=== PATIENT | male | born 1975 | race African-American/Black ===

== ENCOUNTER 2016-06-09 14:53 | Emergency (ER) | payer SELFPAY ==
[2016-06-09 15:16] VITALS: BP 142/84
--- NOTE | 2016-06-09 15:21 | ER Document Report ---
ED Medical Screen (RME) - General Stated Complaint: EYE PROBLEM Notes: Patient is a 40 year old male. Presents with 4 days of eye pain as well as swelling and discharge. Patient has been using eyedrops and ointment from his eye doctor with no improvement. Denies blurry vision and headache. I have greeted and performed a rapid initial assessment of this patient. A comprehensive ED assessment and evaluation of the patient, analysis of test results and completion of the medical decision making process will be conducted by additional ED providers. TRAVEL OUTSIDE OF THE [place] IN LAST 30 DAYS: No COUNTRY TRAVELED TO/FROM: [place] - Related Data Allergies/Adverse Reactions: Penicillins Allergy (Unknown, Verified 06/09/16 15:17) Past Medical History Pulmonary Medical History: Denies: Hx Tuberculosis Neurological Medical History: Denies: Hx Seizures Endocrine Medical History: Reports: Hx Diabetes Mellitus Type 2 Renal/ Medical History: Denies: Hx Kidney Stones GI Medical History: Reports: Hx Hiatal Hernia Past Surgical History: Denies: Hx Pacemaker - Immunizations Hx Diphtheria, Pertussis, Tetanus Vaccination: Yes - unknown Physical Exam - Vital signs Vitals: Temp Pulse Resp BP Pulse Ox 98.2 F 86 16 142/84 H 96 06/09/16 15:15 06/09/16 15:15 06/09/16 15:15 06/09/16 15:15 06/09/16 15:15 Course - Vital Signs Vital signs: Temp Pulse Resp BP Pulse Ox 98.2 F 86 16 142/84 H 96 06/09/16 15:15 06/09/16 15:15 06/09/16 15:15 06/09/16 15:15 06/09/16 15:15
--- NOTE | 2016-06-09 17:15 | ER Document Report ---
ED Eye Complaint - General Chief Complaint: Eye Problem Stated Complaint: EYE PROBLEM Information source: Patient Notes: Patient is a 40-year-old male who states he awoke 3 days ago with some left thigh pain and runny nose with some white discharge from the left eye. Patient denies any foreign bodies into the eye or trauma to the eye. He denies any nausea, vomiting, or fevers. Patient wears glasses but does not wear contacts. He states that bright lights bother the eye. Patient denies any connective tissue disorders or family history of connective tissue disorders. TRAVEL OUTSIDE OF THE [place] IN LAST 30 DAYS: No COUNTRY TRAVELED TO/FROM: [facility] Onset: Other - See above Eye location: Left Injury: No Quality of pain: Burning Severity: Mild Pain Level: Denies Contact lenses worn: No Associated symptoms: Pain, Photophobia, Redness. denies: Foreign body sensation - Related Data Allergies/Adverse Reactions: Penicillins Allergy (Unknown, Verified 06/09/16 15:17) Past Medical History - General Information source: Patient - Social History Smoking Status: Never Smoker Chew tobacco use (# tins/day): No Frequency of alcohol use: None Drug Abuse: None Family History: Reviewed & Not Pertinent Patient has suicidal ideation: No Patient has homicidal ideation: No Pulmonary Medical History: Denies: Hx Tuberculosis Neurological Medical History: Denies: Hx Seizures Endocrine Medical History: Reports: Hx Diabetes Mellitus Type 2 Renal/ Medical History: Denies: Hx Kidney Stones, Hx Peritoneal Dialysis GI Medical History: Reports: Hx Hiatal Hernia Past Surgical History: Denies: Hx Pacemaker - Immunizations Hx Diphtheria, Pertussis, Tetanus Vaccination: Yes - unknown Physical Exam - Vital signs Vitals: Temp Pulse Resp BP Pulse Ox 98.2 F 86 16 142/84 H 96 06/09/16 15:15 06/09/16 15:15 06/09/16 15:15 06/09/16 15:15 06/09/16 15:15 - HEENT Head: Normocephalic, Atraumatic Eyes: Other - Patient's pupil is equal and reactive bilaterally. For extraocular painless range of motion. Patient has no periorbital swelling or erythema. Globes soft. I am unable to detect any foreign body including eversion of the eyelid. Fluids seem shows no obvious uptake. Slit lamp also shows no foreign body and I can detect no obvious cell or flare. Visual acuity is 20/200 on bilateral eyes. Pupils: PERRL Visual acuity- Right eye: 20/200 Visual acuity- Left eye: 20/200 Visual acuity- Both eyes: 20/200 Corrective lenses worn: No - Requires glasses, doesn't have glasses with him. Course - Re-evaluation Re-evalutation: 06/09/16 17:14 Steve-Pen pressure is less than 20. Extensive eye examination as above. Given the history and physical examination, I will call Dr. Anne Marie Lewis the bar host/hostess immersion metalcleaner to discuss the case. 06/09/16 17:22 Dr. Lewis recommended ophthalmic eye ointment and follow-up tomorrow morning in his office. I believe that this is reasonable. Strict return precautions have been explained. - Vital Signs Vital signs: Temp Pulse Resp BP Pulse Ox 98.2 F 86 16 142/84 H 96 06/09/16 15:15 06/09/16 15:15 06/09/16 15:15 06/09/16 15:15 06/09/16 15:15 Discharge - Discharge Clinical Impression: Pain, eye, left Condition: Good Disposition: HOME, SELF-CARE Additional Instructions: Come back immediately with any increased pain, discharge, irritation, any facial redness or swelling, any fevers or vomiting, or any other acute problems. Please make sure that you follow-up with Dr. Anne Marie Lewis tomorrow at the office as we have discussed. Please make sure that she show up and tell them that you were told to come to the office for an eye examination. Prescriptions: Erythromycin Base [E-Mycin 0.5% Oph Oint 1 gm Unit Dose] 1 applic OU QID 7 Days Referrals: ANNE MARIE REES DO [ACTIVE STAFF] - Follow up as needed
[2016-06-09] MEDS ORDERED: ERYTHROMYCIN 0.5% OPH OINT 1 GM UNIT DOSE OS ONE (17:23)
== END 2016-06-09 18:10 | disposition home or self-care (01) ==
LOC: ER 14:53
DX: H57.12 Ocular pain, left eye (principal); H57.8 Other specified disorders of eye and adnexa; R09.89 Other specified symptoms and signs involving the circulatory and respiratory systems; H53.149 Visual discomfort, unspecified; Z88.0 Allergy status to penicillin; E11.9 Type 2 diabetes mellitus without complications
CPT/HCPCS: 99283

== ENCOUNTER 2016-10-16 10:01 | Emergency (ER) | payer SELFPAY ==
[2016-10-16] MEDS ORDERED: TETRACAINE HCL 0.5% OPH SOLN 2 ML OU ONE (10:47)
--- NOTE | 2016-10-16 10:48 | ER Document Report ---
HPI - HPI Patient complains to provider of: eye pain Onset: Yesterday Onset/Duration: Gradual Quality of pain: Burning Pain Level: 5 Context: Complains of bilateral eye pain that started yesterday. Patient denies any known injury. Patient does report light sensitivity. Patient wears glasses but denies any contact lens use. Patient denies any purulent drainage from eyes but does report frequent tearing. Associated Symptoms: Other - bilateral eye pain. denies: Headache Exacerbated by: Denies Relieved by: Denies Similar symptoms previously: Yes Recently seen / treated by doctor: No - ROS ROS below otherwise negative: Yes Systems Reviewed and Negative: Yes All other systems reviewed and negative - EENT EENT: REPORTS: Eye problems - NEURO Neurology: DENIES: Headache - REPRODUCTIVE Reproductive: DENIES: : - DERM Skin Color: Normal Skin Problems: None Past Medical History - General Information source: Patient - Social History Smoking Status: Never Smoker Frequency of alcohol use: None Drug Abuse: None Family History: Reviewed & Not Pertinent Patient has suicidal ideation: No Patient has homicidal ideation: No Pulmonary Medical History: Denies: Hx Tuberculosis Neurological Medical History: Denies: Hx Seizures Endocrine Medical History: Reports: Hx Diabetes Mellitus Type 2 Renal/ Medical History: Denies: Hx Kidney Stones, Hx Peritoneal Dialysis GI Medical History: Reports: Hx Hiatal Hernia Surgical Hx: Negative Past Surgical History: Denies: Hx Pacemaker - Immunizations Hx Diphtheria, Pertussis, Tetanus Vaccination: Yes - unknown Vertical Provider Document - CONSTITUTIONAL Agree With Documented VS: Yes Exam Limitations: No Limitations General Appearance: WD/WN, No Apparent Distress - INFECTION CONTROL TRAVEL OUTSIDE OF THE [place] IN LAST 30 DAYS: No COUNTRY TRAVELED TO/FROM: [place] - HEENT HEENT: Atraumatic, Normocephalic, PERRLA Notes: EOMI, mild injection to bilat conjunctiva. No corneal ulcers, dendrite, or foreign body. - NECK Neck: Normal Inspection - RESPIRATORY Respiratory: No Respiratory Distress O2 Sat by Pulse Oximetry: 97 - BACK Back: Normal Inspection - MUSCULOSKELETAL/EXTREMETIES Musculoskeletal/Extremeties: MAEW - NEURO Level of Consciousness: Awake, Alert, Appropriate Motor/Sensory: No Motor Deficit - DERM Integumentary: Warm, Dry, No Rash Course - Vital Signs Vital signs: Temp Pulse Resp BP Pulse Ox 98.1 F 84 20 137/74 H 97 10/16/16 10:05 10/16/16 10:05 10/16/16 10:05 10/16/16 10:05 10/16/16 10:05 Procedures - Eye Procedure Left Fluorescein applied: Bilateral Eyes picture: 1 - 1mm abraison 2 - 1 mm abrasion 3 - linear abrasion Discharge - Discharge Clinical Impression: Corneal abrasion Qualifiers: Encounter type: initial encounter Laterality: unspecified laterality Qualified Code(s): S05.00XA - Injury of conjunctiva and corneal abrasion without foreign body, unspecified eye, initial encounter Condition: Stable Disposition: HOME, SELF-CARE Instructions: Corneal Abrasion ([facility]) Additional Instructions: Follow-up with your benefits clerk on Tuesday for recheck, call Tuesday to make a follow-up appointment Return as needed for any new or worsening symptoms Prescriptions: Erythromycin Base [Erythromycin] 1 applic OP QID #3.5 oint..gm. Referrals: [facility] [Provider Group] - 10/18/16
[2016-10-16 11:39] VITALS: BP 118/58
== END 2016-10-16 11:36 | disposition home or self-care (01) ==
LOC: ER 10:01
DX: S05.02XA Injury of conjunctiva and corneal abrasion without foreign body, left eye, initial encounter (principal); S05.01XA Injury of conjunctiva and corneal abrasion without foreign body, right eye, initial encounter; X58.XXXA Exposure to other specified factors, initial encounter; H57.13 Ocular pain, bilateral; E11.9 Type 2 diabetes mellitus without complications
CPT/HCPCS: 99283

== ENCOUNTER → 2016-10-22 | Outpatient (CLI) | payer OTHER ==
[2016-10-22 17:59] LABS: ALANINE AMINOTRANSFERASE 121 U/L (21-72); ALBUMIN 4.4 g/dL (3.5-5.0); ALKALINE PHOSPHATASE 96 U/L (38-126); ANION GAP 13 (5-19); ASPARTATE AMINO TRANSFERASE 51 U/L (17-59); BILIRUBIN,DIRECT 0.3 mg/dL (0.0-0.4); BILIRUBIN,TOTAL 0.4 mg/dL (0.2-1.3); BLOOD UREA NITROGEN 18 mg/dL (7-20); CALCIUM 9.3 mg/dL (8.4-10.2); CARBON DIOXIDE 24 mmol/L (22-30); CHLORIDE 106 mmol/L (98-107); CREATININE RESULT 1.08 mg/dL (0.52-1.25); GLUCOSE 50 mg/dL (75-110); POTASSIUM 3.8 mmol/L (3.6-5.0); SODIUM 142.7 mmol/L (137-145); TOTAL PROTEIN 7.8 g/dL (6.3-8.2)
[2016-10-24 07:38] LABS: CREATININE URINE 190.7 mg/dL (Not Estab.); MICROALBUMIN URINE 6.8 ug/mL (Not Estab.)
== END ==
LOC: CCC 16:14
DX: E10.9 Type 1 diabetes mellitus without complications (principal)
CPT/HCPCS: 36415; 80053; 82043; 82570; 83036; 84443

== ENCOUNTER 2017-01-23 15:59 | Emergency (ER) | payer OTHER ==
[2017-01-23 16:05] VITALS: BP 128/68
[2017-01-23] MEDS ORDERED: TETRACAINE HCL 0.5% OPH SOLN 2 ML OU ONE (16:31)
[2017-01-23] MEDS ORDERED: KETOROLAC TROMETHAMINE 0.45% 4 DROP/0.4 ML DROPERETTE OU ONE (16:32)
--- NOTE | 2017-01-23 16:38 | ER Document Report ---
ED Eye Complaint - General Chief Complaint: Eye Pain Stated Complaint: EYE PAIN Time Seen by Provider: 01/23/17 16:26 Notes: 41 yo male c/o bilateral eye soreness, tearing x 2 days. no trauma. noncontact wearer, wears glasses. denies visual change, headache. Pt also c/o pain to right small toe x several weeks. TRAVEL OUTSIDE OF THE [place] IN LAST 30 DAYS: No COUNTRY TRAVELED TO/FROM: [facility] Eye location: Bilateral Injury: No Quality of pain: Other - soreness Associated symptoms: Redness, Other - tearing. denies: Photophobia, Matting, Eyelid swelling, Foreign body sensation, Blurred vision - Related Data Allergies/Adverse Reactions: Penicillins Allergy (Unknown, Verified 01/23/17 16:03) Past Medical History - General Information source: Patient - Social History Smoking Status: Never Smoker Frequency of alcohol use: None Drug Abuse: None Lives with: Family Family History: Reviewed & Not Pertinent Pulmonary Medical History: Denies: Hx Tuberculosis Neurological Medical History: Denies: Hx Seizures Endocrine Medical History: Reports: Hx Diabetes Mellitus Type 2 Renal/ Medical History: Denies: Hx Kidney Stones, Hx Peritoneal Dialysis GI Medical History: Reports: Hx Hiatal Hernia Past Surgical History: Denies: Hx Pacemaker - Immunizations Hx Diphtheria, Pertussis, Tetanus Vaccination: Yes - unknown Review of Systems - Review of Systems Constitutional: No symptoms reported EENT: No symptoms reported Cardiovascular: No symptoms reported Respiratory: No symptoms reported Gastrointestinal: No symptoms reported Genitourinary: No symptoms reported Male Genitourinary: No symptoms reported Musculoskeletal: No symptoms reported Skin: No symptoms reported Hematologic/Lymphatic: No symptoms reported Neurological/Psychological: No symptoms reported -: Yes All other systems reviewed and negative Physical Exam - Vital signs Vitals: Temp Pulse Resp BP Pulse Ox 98.5 F 91 16 128/68 H 95 01/23/17 16:02 01/23/17 16:02 01/23/17 16:02 01/23/17 16:02 01/23/17 16:02 Interpretation: Normal - General General appearance: Appears well, Alert - HEENT Head: Normocephalic, Atraumatic Eyes: Normal Conjunctiva: Injected Extraocular movements intact: Yes Pupils: PERRL Tympanic membrane: Normal Neck: Normal, Supple - Respiratory Respiratory status: No respiratory distress Chest status: Nontender Breath sounds: Normal Chest palpation: Normal - Cardiovascular Rhythm: Regular Heart sounds: Normal auscultation Murmur: No - Abdominal Inspection: Normal Distension: No distension Bowel sounds: Normal Tenderness: Nontender Organomegaly: No organomegaly - Back Back: Normal, Nontender - Extremities General upper extremity: Normal inspection, Nontender, Normal color, Normal ROM , Normal temperature General lower extremity: Normal inspection, Nontender, Normal color, Normal ROM , Normal temperature, Normal weight bearing. No: Jesusita's sign Foot: Tender - right little toe with callous/corn to dorsal toe. no erythema or signs of infection - Neurological Neuro grossly intact: Yes Cognition: Normal Orientation: AAOx4 Lani Coma Scale Eye Opening: Spontaneous Lani Coma Scale Verbal: Oriented Lani Coma Scale Motor: Obeys Commands [place] Coma Scale Total: 15 Speech: Normal Motor strength normal: LUE, RUE, LLE, RLE Sensory: Normal - Psychological Associated symptoms: Normal affect, Normal mood - Skin Skin Temperature: Warm Skin Moisture: Dry Skin Color: Normal Course - Vital Signs Vital signs: Temp Pulse Resp BP Pulse Ox 98.5 F 91 16 128/68 H 95 01/23/17 16:02 01/23/17 16:02 01/23/17 16:02 01/23/17 16:02 01/23/17 16:02 Procedures - Eye Procedure bilat eyes Alcaine Drops Administered: Yes - tetracaine Acular drops administered: Bilateral Fluorescein applied: Bilateral - no fluorescein up take Discharge - Discharge Clinical Impression: [place] of toe Conjunctivitis Qualifiers: Conjunctivitis type: acute Laterality: bilateral Condition: Stable Disposition: HOME, SELF-CARE Instructions: Conjunctivitis ([facility]) Additional Instructions: use antibiotic drops as prescribed cool compresses for comfort good hand hygiene follow up with [facility] if symptoms persist return to ER for any worsening Prescriptions: Polymyxin B Sulf/Trimethoprim [Polytrim Eye Drops] 1 drop OS Q4 #1 bottle
== END 2017-01-23 16:56 | disposition home or self-care (01) ==
LOC: ER 15:59
DX: H10.9 Unspecified conjunctivitis (principal); L84 Corns and callosities; Z88.0 Allergy status to penicillin; E11.9 Type 2 diabetes mellitus without complications
CPT/HCPCS: 99283

== ENCOUNTER 2017-01-30 01:48 | Emergency (ER) | payer SELFPAY ==
[2017-01-30 01:58] VITALS: BP 127/80
--- NOTE | 2017-01-30 02:41 | ER Document Report ---
ED General - General Chief Complaint: Flu Symptoms Stated Complaint: SORE THROAT Time Seen by Provider: 01/30/17 02:19 Mode of Arrival: Ambulatory Information source: Patient TRAVEL OUTSIDE OF THE [place] IN LAST 30 DAYS: No COUNTRY TRAVELED TO/FROM: [facility] Patient complains to provider of: Right ear and throat itching Onset: Yesterday Onset/Duration: Intermittent Quality of pain: No pain Associated symptoms: Nonproductive cough Exacerbated by: Denies Notes: Patient is a 41-year-old male presenting to the emergency room complaining of itching sensation that started in his right ear yesterday, and spread to his throat, he took an [id number] cold tablet yesterday and symptoms went away only to return today, he does report nasal congestion, nonproductive cough , denies a fever, he is resting comfortably at time of my evaluation and reports that his symptoms are once again resolved as he has taken another cold tablets - Related Data Allergies/Adverse Reactions: Penicillins Allergy (Unknown, Verified 01/30/17 01:54) Past Medical History - General Information source: Patient - Social History Smoking Status: Never Smoker Family History: Reviewed & Not Pertinent - Past Medical History Cardiac Medical History: Reports: Hx Hypercholesterolemia Pulmonary Medical History: Denies: Hx Tuberculosis Neurological Medical History: Denies: Hx Seizures Endocrine Medical History: Reports: Hx Diabetes Mellitus Type 2 Renal/ Medical History: Denies: Hx Kidney Stones, Hx Peritoneal Dialysis GI Medical History: Reports: Hx Hiatal Hernia Past Surgical History: Denies: Hx Pacemaker - Immunizations Hx Diphtheria, Pertussis, Tetanus Vaccination: Yes - unknown Review of Systems - Review of Systems Constitutional: No symptoms reported EENT: See HPI Cardiovascular: No symptoms reported Respiratory: See HPI Gastrointestinal: No symptoms reported Genitourinary: No symptoms reported Male Genitourinary: No symptoms reported Musculoskeletal: No symptoms reported Skin: No symptoms reported Hematologic/Lymphatic: No symptoms reported Neurological/Psychological: No symptoms reported -: Yes All other systems reviewed and negative Physical Exam - Vital signs Vitals: Temp Pulse Resp BP Pulse Ox 99.0 F 89 14 127/80 H 97 01/30/17 01:55 01/30/17 01:55 01/30/17 01:55 01/30/17 01:55 01/30/17 01:55 Interpretation: Normal - General General appearance: Appears well, Alert - HEENT Head: Normocephalic, Atraumatic Eyes: Normal Conjunctiva: Normal Extraocular movements intact: Yes Eyelashes: Normal Pupils: PERRL Ears: Normal External canal: Normal Tympanic membrane: Normal Pharynx: Erythema. No: Exudate, Tonsillar hypertrophy Neck: Normal - Respiratory Respiratory status: No respiratory distress Chest status: Nontender Breath sounds: Normal Chest palpation: Normal - Cardiovascular Rhythm: Regular Heart sounds: Normal auscultation Murmur: No - Abdominal Inspection: Normal Distension: No distension Bowel sounds: Normal Tenderness: Nontender Organomegaly: No organomegaly - Back Back: Normal, Nontender - Extremities General upper extremity: Normal inspection, Nontender, Normal color, Normal ROM , Normal temperature General lower extremity: Normal inspection, Nontender, Normal color, Normal ROM , Normal temperature, Normal weight bearing. No: Jesusita's sign - Neurological Neuro grossly intact: Yes Cognition: Normal Orientation: AAOx4 [place] Coma Scale Eye Opening: Spontaneous Lani Coma Scale Verbal: Oriented Lani Coma Scale Motor: Obeys Commands [place] Coma Scale Total: 15 Speech: Normal Motor strength normal: LUE, RUE, LLE, RLE Sensory: Normal - Psychological Associated symptoms: Normal affect, Normal mood - Skin Skin Temperature: Warm Skin Moisture: Dry Skin Color: Normal Course - Re-evaluation Re-evalutation: 01/30/17 04:33 Physical exam findings are unremarkable, patient symptoms are consistent with likely viral upper respiratory illness, he is asymptomatic at time of my evaluation, he was advised to continue taking the byre-imi-inhrbjq cold tablets that he has been taking as he seem to be helping with his symptoms, follow-up with a primary care provider or return if symptoms worsen, patient acknowledges understanding and agreement with this plan - Vital Signs Vital signs: Temp Pulse Resp BP Pulse Ox 99.0 F 89 14 127/80 H 97 01/30/17 01:55 01/30/17 01:55 01/30/17 01:55 01/30/17 01:55 01/30/17 01:55 Discharge - Discharge Clinical Impression: Viral upper respiratory illness Condition: Stable Disposition: HOME, SELF-CARE Instructions: Upper Respiratory Illness ([facility]), Viral Syndrome ([facility]) Additional Instructions: Follow up with your primary care provider in one to 2 days. Return to the emergency room immediately if symptoms worsen or any additional concerns.
== END 2017-01-30 02:58 | disposition home or self-care (01) ==
LOC: ER 01:48
DX: J02.9 Acute pharyngitis, unspecified (principal); B34.9 Viral infection, unspecified; H92.01 Otalgia, right ear; R09.81 Nasal congestion; R05 Cough; J06.9 Acute upper respiratory infection, unspecified
CPT/HCPCS: 99283

== ENCOUNTER 2017-02-14 06:36 | Emergency (ER) | payer SELFPAY ==
[2017-02-14 06:44] VITALS: BP 121/73
--- NOTE | 2017-02-14 07:11 | ER Document Report ---
ED General - General Chief Complaint: Eye Problem Stated Complaint: PAIN IN LEFT EYE Time Seen by Provider: 02/14/17 07:04 Mode of Arrival: Ambulatory Information source: Patient Notes: 41 yr old male presents with complaints of drainage clear fluid from the left eye, pt has had multiple previous episodes. denies any fevers or chills, nasuea or vomtiing . denies any blurry vision TRAVEL OUTSIDE OF THE [place] IN LAST 30 DAYS: No COUNTRY TRAVELED TO/FROM: [facility] Onset: Just prior to arrival Onset/Duration: Intermittent, Waxing and waning Quality of pain: No pain Severity: Mild Pain Level: Denies Associated symptoms: None Exacerbated by: Denies Relieved by: Denies Similar symptoms previously: Yes Recently seen / treated by doctor: Yes - Related Data Allergies/Adverse Reactions: Penicillins Allergy (Unknown, Verified 02/14/17 06:43) Past Medical History - Social History Smoking Status: Never Smoker Cigarette use (# per day): No Chew tobacco use (# tins/day): No Smoking Education Provided: No Frequency of alcohol use: None Family History: Reviewed & Not Pertinent Patient has suicidal ideation: No Patient has homicidal ideation: No - Past Medical History Cardiac Medical History: Reports: Hx Hypercholesterolemia Pulmonary Medical History: Denies: Hx Tuberculosis Neurological Medical History: Denies: Hx Seizures Endocrine Medical History: Reports: Hx Diabetes Mellitus Type 2 Renal/ Medical History: Denies: Hx Kidney Stones, Hx Peritoneal Dialysis GI Medical History: Reports: Hx Hiatal Hernia Surgical Hx: Negative Past Surgical History: Denies: Hx Pacemaker - Immunizations Hx Diphtheria, Pertussis, Tetanus Vaccination: Yes - unknown Review of Systems - Review of Systems Notes: REVIEW OF SYSTEMS: CONSTITUTIONAL : Denies fever, chills, or sweats. Denies recent illness. EENT: left eye drainage CARDIOVASCULAR: Denies chest pain. Denies palpitations or racing or irregular heart beat. Denies ankle edema. RESPIRATORY: Denies cough, cold, or chest congestion. Denies shortness of breath, difficulty breathing, or wheezing. GASTROINTESTINAL: Denies abdominal pain or distention. Denies nausea, vomiting , or diarrhea. Denies blood in vomitus, stools, or per rectum. Denies black, tarry stools. Denies constipation. GENITOURINARY: Denies difficulty urinating, painful urination, burning, frequency, blood in urine, or discharge. MUSCULOSKELETAL: Denies back or neck pain or stiffness. Denies joint pain or swelling. SKIN: Denies rash, lesions or sores. HEMATOLOGIC : Denies easy bruising or bleeding. LYMPHATIC: Denies swollen, enlarged glands. NEUROLOGICAL: Denies confusion or altered mental status. Denies passing out or loss of consciousness. Denies dizziness or lightheadedness. Denies headache. Denies weakness or paralysis or loss of use of either side. Denies problems with gait or speech. Denies sensory loss, numbness, or tingling. Denies seizures. PSYCHIATRIC: Denies anxiety or stress. Denies depression, suicidal ideation, or homicidal ideation. ALL OTHER SYSTEMS REVIEWED AND NEGATIVE. Dictation was performed using [employer] voice recognition software PHYSICAL EXAMINATION: GENERAL: Well-appearing, well-nourished and in no acute distress. HEAD: Atraumatic, normocephalic. EYES: Pupils equal round and reactive to light, extraocular movements intact, sclera anicteric, left ocnjunctiva injected , clear tears ENT: Nares patent, oropharynx clear without exudates. Moist mucous membranes. NECK: Normal range of motion, supple without lymphadenopathy LUNGS: Breath sounds clear to auscultation bilaterally and equal. No wheezes rales or rhonchi. HEART: Regular rate and rhythm without murmurs ABDOMEN: Soft, nontender, nondistended abdomen. No guarding, no rebound. No masses appreciated. Musculoskeletal: Normal range of motion, no pitting or edema. No cyanosis. NEUROLOGICAL: Cranial nerves grossly intact. Normal speech, normal gait. Normal sensory, motor exams PSYCH: Normal mood, normal affect. SKIN: Warm, Dry, normal turgor, no rashes or lesions noted. Physical Exam - Vital signs Vitals: Temp Pulse Resp BP Pulse Ox 98.8 F 79 16 121/73 98 02/14/17 06:43 02/14/17 06:43 02/14/17 06:43 02/14/17 06:43 02/14/17 06:43 Course - Re-evaluation Re-evalutation: 02/14/17 10:19 Patient has been seen multiple times for these previous similar episodes, I have suspicion he has not actually seen the aluminum polisher that we keep referring him to. I have requested he do so given that we can keep trying antibiotics and do not seem to fix the problem. Patient has Bactrim drops and i encouraged use until seen by optho After performing a Medical Screening Examination, I estimate there is LOW risk for a RETAINED CORNEAL or LID FOREIGN BODY, DEEP SPACE INFECTION (e.g., ORBITAL CELLULITIS OR ABSCESS), ACUTE GLAUCOMA, PENETRATING GLOBE INJURY, RETINAL DETACHMENT, or MENINGITIS thus I consider the discharge disposition reasonable. I have reevaluated this patient multiple times and no significant life threatening changes are noted. Also, there is no evidence or peritonitis, sepsis , or toxicity. The patient and I have discussed the diagnosis and risks, and we agree with discharging home with outpatient follow-up with the understanding that symptoms and presentations can change. We also discussed returning to the Emergency Department immediately if new or worsening symptoms occur. We have discussed the symptoms which are most concerning (e.g., changing or worsening pain, vision changes, neck stiffness or fever) that necessitate immediate return. - Vital Signs Vital signs: Temp Pulse Resp BP Pulse Ox 98.8 F 79 16 121/73 98 02/14/17 06:43 02/14/17 06:43 02/14/17 06:45 02/14/17 06:43 02/14/17 06:43 Discharge - Discharge Clinical Impression: Conjunctivitis Qualifiers: Conjunctivitis type: acute Acute conjunctivitis type: viral Laterality: left Qualified Code(s): B30.9 - Viral conjunctivitis, unspecified Condition: Stable Disposition: HOME, SELF-CARE Instructions: Conjunctivitis, Allergic, Conjunctivitis ([facility]) Additional Instructions: You have been seen multiple times for left eye pain, you must be seen by an aluminum polisher for further care you may use the antibiotic drops once every 4 hours for 10 days Forms: Return to Work Referrals: SAMEERA SZYMANSKI MD [ACTIVE STAFF] - 02/15/17
== END 2017-02-14 07:20 | disposition home or self-care (01) ==
LOC: ER 06:36
DX: B30.9 Viral conjunctivitis, unspecified (principal); H57.12 Ocular pain, left eye; E78.00 Pure hypercholesterolemia, unspecified; E11.9 Type 2 diabetes mellitus without complications; Z88.0 Allergy status to penicillin
CPT/HCPCS: 99283

== ENCOUNTER 2017-03-07 16:26 | Emergency (ER) | payer SELFPAY ==
--- NOTE | 2017-03-07 17:48 | ER Document Report ---
HPI - HPI Patient complains to provider of: Eye irritation, nasal congestion Onset: This afternoon Onset/Duration: Gradual Quality of pain: Achy Pain Level: 4 Context: Patient presents complaining of left eye irritation with some mild drainage. Patient is concerned that he may have conjunctivitis. Patient does wear glasses and denies any contact lens use. Patient also reports some nasal congestion symptoms. Patient denies any fever, sore throat or ear pain. Patient denies any cough at this time. Associated Symptoms: Rhinnorhea. denies: Fever, Headache, Vomiting Exacerbated by: Denies Relieved by: Denies Similar symptoms previously: Yes Recently seen / treated by doctor: No - ROS ROS below otherwise negative: Yes Systems Reviewed and Negative: Yes All other systems reviewed and negative - EENT EENT: REPORTS: Nasal Drainage-Clear, Congestion, Eye problems - CARDIOVASCULAR Cardiovascular: DENIES: Chest pain - RESPIRATORY Respiratory: DENIES: Coughing - GASTROINTESTINAL Gastrointestinal: DENIES: Nausea, Patient vomiting - REPRODUCTIVE Reproductive: DENIES: : - DERM Skin Color: Normal Skin Problems: None Past Medical History - General Information source: Patient - Social History Smoking Status: Never Smoker Chew tobacco use (# tins/day): No Frequency of alcohol use: None Drug Abuse: None 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 Family History: Reviewed & Not Pertinent Patient has suicidal ideation: No Patient has homicidal ideation: No - Past Medical History Cardiac Medical History: Reports: Hx Hypercholesterolemia Pulmonary Medical History: Denies: Hx Tuberculosis Neurological Medical History: Denies: Hx Seizures Endocrine Medical History: Reports: Hx Diabetes Mellitus Type 2 Renal/ Medical History: Denies: Hx Kidney Stones, Hx Peritoneal Dialysis GI Medical History: Reports: Hx Hiatal Hernia Surgical Hx: Negative Past Surgical History: Denies: Hx Pacemaker - Immunizations Hx Diphtheria, Pertussis, Tetanus Vaccination: Yes - unknown Vertical Provider Document - CONSTITUTIONAL Agree With Documented VS: Yes Exam Limitations: No Limitations General Appearance: WD/WN, No Apparent Distress - INFECTION CONTROL TRAVEL OUTSIDE OF THE [place] IN LAST 30 DAYS: No - HEENT HEENT: Atraumatic, Normocephalic Notes: Small amount of mucoid drainage noted to eyelashes of left eye,. Minimal injection of sclera of left eye. Extraocular movements intact, no fluorescein uptake, no corneal abrasion, dendrite, or corneal ulcer. - NECK Neck: Normal Inspection, Supple - RESPIRATORY Respiratory: Breath Sounds Normal, No Respiratory Distress O2 Sat by Pulse Oximetry: 96 - CARDIOVASCULAR Cardiovascular: Regular Rate, Regular Rhythm - MUSCULOSKELETAL/EXTREMETIES Musculoskeletal/Extremeties: MAEW - NEURO Level of Consciousness: Awake, Alert, Appropriate Motor/Sensory: No Motor Deficit - DERM Integumentary: Warm, Dry, No Rash Course - Vital Signs Vital signs: Temp Pulse Resp BP Pulse Ox 98.5 F 78 15 133/75 H 96 03/07/17 17:01 03/07/17 17:01 03/07/17 17:01 03/07/17 17:01 03/07/17 17:01 Discharge - Discharge Clinical Impression: Nasal congestion Conjunctivitis Qualifiers: Conjunctivitis type: unspecified Laterality: left Qualified Code(s): H10.9 - Unspecified conjunctivitis Condition: Stable Disposition: HOME, SELF-CARE Instructions: Conjunctivitis ([facility]), Upper Respiratory Illness ([facility]) Additional Instructions: Return immediately for any new or worsening symptoms Followup with your primary care provider, call tomorrow to make a followup appointment Use saline nasal spray [id number] to help with nasal congestion symptoms. 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 Prescriptions: Erythromycin Base [Erythromycin] 1 applic LFT_EYE QID #3.5 oint..gm. Referrals: [facility] [Provider Group] - Follow up tomorrow
[2017-03-07 19:02] VITALS: BP 129/73
== END 2017-03-07 19:00 | disposition home or self-care (01) ==
LOC: ER 16:26
DX: H10.9 Unspecified conjunctivitis (principal); R09.81 Nasal congestion; E78.00 Pure hypercholesterolemia, unspecified; E11.9 Type 2 diabetes mellitus without complications
CPT/HCPCS: 99283

== ENCOUNTER 2017-03-11 16:11 | Emergency (ER) | payer OTHER ==
--- NOTE | 2017-03-11 17:12 | ER Document Report ---
HPI - HPI Pain Level: 4 Notes: Patient is a 41-year-old diabetic male who presents to the ED complaining of right nipple/breast pain 2 days. Patient states that he has noticed redness and a lump in the area. Patient has not noticed any obvious drainage or abscess formation. Patient states that the pain does not radiate. He denies any piercings, insect bites, or human bites to the area. Patient states that he is still eating and drinking without any difficulties. He has no other concerns or complaints. Denies any history of breast cancer. Patient denies any smoking or IV drug use. Denies any headache, fever, neck pain, URI, sore throat, chest pain, palpitations, syncope, cough, shortness of breath, wheeze, dyspnea, abdominal pain, nausea/vomiting/diarrhea, urinary retention, dysuria, hematuria. No h/o MRSA. - ROS Notes: REVIEW OF SYSTEMS: CONSTITUTIONAL : Denies fever, chills, or sweats. Denies recent illness. EENT: Denies eye, ear, throat, or mouth pain or symptoms. Denies nasal or sinus congestion or discharge. Denies throat, tongue, or mouth swelling or difficulty swallowing. CARDIOVASCULAR: Denies chest pain. Denies palpitations or racing or irregular heart beat. Denies ankle edema. RESPIRATORY: Denies cough, cold, or chest congestion. Denies shortness of breath, difficulty breathing, or wheezing. GASTROINTESTINAL: Denies abdominal pain or distention. Denies nausea, vomiting , or diarrhea. Denies blood in vomitus, stools, or per rectum. Denies black, tarry stools. Denies constipation. GENITOURINARY: Denies difficulty urinating, painful urination, burning, frequency, blood in urine, or discharge. MUSCULOSKELETAL: Denies back or neck pain or stiffness. Denies joint pain or swelling. SKIN: see hpi NEUROLOGICAL: Denies confusion or altered mental status. Denies passing out or loss of consciousness. Denies dizziness or lightheadedness. Denies headache. Denies weakness or paralysis or loss of use of either side. Denies problems with gait or speech. Denies sensory loss, numbness, or tingling. ALL OTHER SYSTEMS REVIEWED AND NEGATIVE. Dictation was performed using [employer] voice recognition software - CARDIOVASCULAR Cardiovascular: DENIES: Chest pain - REPRODUCTIVE Reproductive: DENIES: : - DERM Skin Color: Normal Past Medical History - Social History Smoking Status: Never Smoker Chew tobacco use (# tins/day): No Frequency of alcohol use: None Drug Abuse: None Family History: Reviewed & Not Pertinent Patient has suicidal ideation: No Patient has homicidal ideation: No - Past Medical History Cardiac Medical History: Reports: Hx Hypercholesterolemia Pulmonary Medical History: Denies: Hx Tuberculosis Neurological Medical History: Denies: Hx Seizures Endocrine Medical History: Reports: Hx Diabetes Mellitus Type 2 Renal/ Medical History: Denies: Hx Kidney Stones, Hx Peritoneal Dialysis GI Medical History: Reports: Hx Hiatal Hernia Surgical Hx: Negative Past Surgical History: Denies: Hx Pacemaker - Immunizations Hx Diphtheria, Pertussis, Tetanus Vaccination: Yes - unknown Vertical Provider Document - CONSTITUTIONAL Agree With Documented VS: Yes Notes: PHYSICAL EXAMINATION: GENERAL: Well-appearing, well-nourished and in no acute distress. NECK: Normal range of motion, supple without lymphadenopathy Chest: + erythema to the lower 1/3 nipple and inferior nipple surrounding skin. + lump palpated w/o obvious fluctuant fluid. Lump is moveable and tender. No nipple discharge, streaks, or dimpling noted. LUNGS: Breath sounds clear to auscultation bilaterally and equal. No wheezes rales or rhonchi. HEART: Regular rate and rhythm without murmurs, rubs, gallops. Musculoskeletal: FROM to passive/active. Strength 5+/5. Extremities: No cyanosis, clubbing, or edema b/l. Peripheral pulses 2+. Capillary refill less than 3 seconds. NEUROLOGICAL: Normal speech, normal gait. Normal sensory, motor exams PSYCH: Normal mood, normal affect. SKIN: see chest exam. warm, Dry, normal turgor, no rashes or lesions noted. - INFECTION CONTROL TRAVEL OUTSIDE OF THE [place] IN LAST 30 DAYS: No - RESPIRATORY O2 Sat by Pulse Oximetry: 97 Course - Re-evaluation Re-evalutation: 03/11/17 17:[address] Stover who recommended US to investigate for any fluid. If no fluid, send home on PO antibiotics w/o need for I&D. If fluid noted on US, he will come in and I&D. Reviewed with patient who is in agreement. 03/11/17 17:38 Dr. Peter/Delroy are not trained in the US machine so Dr. Alonzo was able to assist for further evaluation as US was backed up. No obvious fluid noted on US, appears to be more superficial cellulitis. Notified Dr. Stover to let him know we will treat with PO meds and have him f/ u with his PCM/General surgery for recheck. Pt is an afebrile, well-hydrated, 41-year-old diabetic male who presents the ED with a superficial cellulitis to the right nipple that does not warrant I&D at this time. Vitals are stable. PE is otherwise unremarkable. I will send him home with a prescription for Bactrim to take as directed, patient does not have any health coverage and is allergic to PCN's. Conservative measures for symptoms with close monitoring encouraged. Patient to have a recheck with PCM or general surgery in 3-5 days for recheck. Return to the ED with any worsening /concerning symptoms otherwise as reviewed in discharge. Patient is in agreement. - Vital Signs Vital signs: Temp Pulse Resp BP Pulse Ox 98.2 F 79 18 127/76 H 97 03/11/17 16:30 03/11/17 16:30 03/11/17 16:30 03/11/17 16:30 03/11/17 16:30 Discharge - Discharge Clinical Impression: Cellulitis Qualifiers: Site of cellulitis: trunk Site of cellulitis of trunk: chest wall Qualified Code(s): L03.313 - Cellulitis of chest wall Condition: Stable Disposition: HOME, SELF-CARE Instructions: Cellulitis ([facility]) Additional Instructions: Keep the skin clean Wash with soap and water Take antibiotics as directed Tylenol/ibuprofen as needed Warm moist compresses may help Triple antibiotic ointment with any break in the skin Recheck with your PCM/General Surgery in 3-5 days Return to the ED with any worsening symptoms and/or development of fever, headache, chest pain, palpitations, syncope, shortness of breath, trouble breathing, abdominal pain, n/v/d, blood in stool/urine, purulent discharge, worsening erythema, red streaks, or other worsening symptoms that are concerning to you. Prescriptions: Sulfamethoxazole/Trimethoprim [Bactrim Ds Tablet] 1 each PO BID #20 tablet Forms: Elevated Blood Pressure Referrals: [facility] [Provider Group] - Follow up in 3-5 days SELAM TINEO MD [ACTIVE STAFF] - Follow up in 3-5 days
[2017-03-11 18:15] VITALS: BP 125/63
== END 2017-03-11 18:10 | disposition home or self-care (01) ==
LOC: ER 16:11
DX: N61.0 Mastitis without abscess (principal); E11.9 Type 2 diabetes mellitus without complications
CPT/HCPCS: 99283

== ENCOUNTER 2017-04-27 03:48 | Emergency (ER) | payer OTHER ==
--- NOTE | 2017-04-27 04:16 | ER Document Report ---
HPI - HPI Pain Level: 5 Notes: Patient is a 41-year-old male who presents the ED complaining of left eye redness, discharge 1 day. Patient states that he has not noticed any changes with his vision. Patient states that his eye feels irritated. Patient denies contact use. Patient denies any recent illness. He is still eating and drinking without difficulties. Patient denies any foreign body sensation. He has not had any light sensitivity. Denies any headache, fever, head injury, neck pain, changes in vision/speech/mentation/hearing, URI, sore throat, chest pain, palpitations, syncope, cough, shortness of breath, wheeze, dyspnea, abdominal pain, nausea/vomiting/diarrhea, urethral discharge, dysuria, hematuria , joint pains, or rash. - ROS Notes: REVIEW OF SYSTEMS: CONSTITUTIONAL : Denies fever, chills, or sweats. Denies recent illness. EENT: see hpi CARDIOVASCULAR: Denies chest pain. Denies palpitations or racing or irregular heart beat. RESPIRATORY: Denies cough, cold, or chest congestion. Denies shortness of breath, difficulty breathing, or wheezing. GASTROINTESTINAL: Denies abdominal pain or distention. Denies nausea, vomiting , or diarrhea. Denies blood in vomitus, stools, or per rectum. Denies black, tarry stools. Denies constipation. GENITOURINARY: Denies difficulty urinating, painful urination, burning, frequency, blood in urine, or discharge. MUSCULOSKELETAL: Denies back or neck pain or stiffness. Denies joint pain or swelling. SKIN: Denies rash, lesions or sores. NEUROLOGICAL: Denies dizziness or lightheadedness. Denies headache. Denies weakness or paralysis or loss of use of either side. Denies problems with gait or speech. Denies sensory loss, numbness, or tingling. ALL OTHER SYSTEMS REVIEWED AND NEGATIVE. Dictation was performed using [employer] voice recognition software - REPRODUCTIVE Reproductive: DENIES: : Past Medical History - Social History Smoking Status: Unknown if Ever Smoked Family History: Reviewed & Not Pertinent - Past Medical History Cardiac Medical History: Reports: Hx Hypercholesterolemia Pulmonary Medical History: Denies: Hx Tuberculosis Neurological Medical History: Denies: Hx Seizures Endocrine Medical History: Reports: Hx Diabetes Mellitus Type 2 Renal/ Medical History: Denies: Hx Kidney Stones, Hx Peritoneal Dialysis GI Medical History: Reports: Hx Hiatal Hernia Past Surgical History: Denies: Hx Pacemaker - Immunizations Hx Diphtheria, Pertussis, Tetanus Vaccination: Yes - unknown Vertical Provider Document - CONSTITUTIONAL Agree With Documented VS: Yes Notes: PHYSICAL EXAMINATION: GENERAL: Well-appearing, well-nourished and in no acute distress. A&Ox4 HEAD: Atraumatic, normocephalic. EYES: Pupils equal round and reactive to light, extraocular movements intact, sclera anicteric, Left conjunctiva injected with clear discharge. Non-tender to palpation. No surrounding erythema. Flourescein/Wood's lamp: + small corneal abrasion. No obvious foreign body, siedel sign, or other uptake. ENT: EAC clear b/l. TM's intact b/l without erythema, fluid, or perforation. Nares patent and without discharge. oropharynx clear without exudates. No tonsilar hypertrophy or erythema. Moist mucous membranes. No sinus tenderness. NECK: Normal range of motion, supple without lymphadenopathy. No rigidity/ meningismus LUNGS: Breath sounds clear to auscultation bilaterally and equal. No wheezes rales or rhonchi. HEART: Regular rate and rhythm without murmurs, rubs, gallops. NEUROLOGICAL: Cranial nerves grossly intact. Normal speech, normal gait. Normal sensory, motor exams PSYCH: Normal mood, normal affect. SKIN: Warm, Dry, normal turgor, no rashes or lesions noted. - INFECTION CONTROL TRAVEL OUTSIDE OF THE [place] IN LAST 30 DAYS: No - RESPIRATORY O2 Sat by Pulse Oximetry: 97 Course - Re-evaluation Re-evalutation: 04/27/17 04:29 Patient is an afebrile, well-hydrated, 41-year-old male who presents the ED with conjunctivitis left eye and a small corneal abrasion. Vitals are stable. PE is otherwise unremarkable. Fluorescein Wood's lamp utilized to visualize the abrasion without any obvious Kaylynn sign, foreign body, or other uptake noted. Low suspicion for any retained corneal or lid foreign body, deep space infection including orbital cellulitis/abscess, acute glaucoma, penetrating globe injury, retinal detachment, meningitis, sepsis, fracture, compartment syndrome. I will send him home with a prescription for Polytrim to use as directed. Conservative measures otherwise for symptoms with proper handwashing. Recheck with your PCM in 3-5 days. Schedule a f/u with Ophthalmology next week. Return to the ED with any worsening/concerning symptoms otherwise as reviewed in discharge. Patient is in agreement. - Vital Signs Vital signs: Temp Pulse Resp BP Pulse Ox 97.9 F 78 16 125/63 97 04/27/17 03:50 04/27/17 03:50 04/27/17 03:50 04/27/17 03:50 04/27/17 03:50 Procedures - Eye Procedure Left Time completed: 04:25 Eye Irrigated w/ Saline (ccs): 20 Alcaine Drops Administered: Yes - tetracaine left eye Fluorescein applied: Left Notes: 04/27/17 04:28 flourescein/wood's lamp + small abrasion noted to cornea w/o other uptake, see exam notes. Pt tolerated procedure well, no complications Lid was everted and wiped Discharge - Discharge Clinical Impression: Conjunctivitis, left eye Qualifiers: Conjunctivitis type: acute Acute conjunctivitis type: unspecified Qualified Code(s): H10.32 - Unspecified acute conjunctivitis, left eye Condition: Stable Disposition: HOME, SELF-CARE Instructions: Conjunctivitis ([facility]), Eyedrop Use ([facility]) Additional Instructions: keep eyes clean Avoid scratching/touching eyes Wash hands regularly Use eye drops as directed Maintain adequate fluid intake tylenol/ibuprofen as needed over the counter cold medication as needed for symptoms F/u: with your PCM in 3-5 days for a recheck Consider consult with Ophthalmology for ongoing/worsening symptoms Return to the ED with any worsening symptoms and/or development of fever, headache, changes in vision, eye pain, worsening eye redness, redness around the eyes, purulent discharge, sore throat, facial swelling, neck pain/stiffness , chest pain, palpitations, syncope, shortness of breath, trouble breathing, abdominal pain, n/v/d, blood in stool/urine, dysuria, or other worsening symptoms that are concerning to you. Prescriptions: Polymyxin B Sulf/Trimethoprim [Polytrim Eye Drops] 1 drop OS Q3H #10 ml Referrals: MARIEL ROBLES DO [ACTIVE STAFF] - Follow up in 3-5 days
[2017-04-27 05:33] VITALS: BP 124/76
== END 2017-04-27 05:33 | disposition home or self-care (01) ==
LOC: ER 03:48
DX: S05.02XA Injury of conjunctiva and corneal abrasion without foreign body, left eye, initial encounter (principal); H10.32 Unspecified acute conjunctivitis, left eye; H57.12 Ocular pain, left eye; X58.XXXA Exposure to other specified factors, initial encounter
CPT/HCPCS: 99282

== ENCOUNTER 2017-06-06 04:27 | Emergency (ER) | payer OTHER ==
--- NOTE | 2017-06-06 04:58 | ER Document Report ---
ED Eye Complaint - General Chief Complaint: Eye Pain Stated Complaint: LEFT EYE PAIN Time Seen by Provider: 06/06/17 04:47 Notes: Patient is a 41-year-old male that comes to the emergency department for chief complaint of irritation to the left eye, foreign body sensation, and drainage that is clear from the left eye. Symptoms started over the past 24 hours. Patient has been evaluated for the same complaint, mainly in the left but occasionally in the right, on multiple times in the emergency department. Patient has never followed up with ophthalmology. He states he does not have time outside of work. He does not wear visual correction. He denies any visual changes. He denies any other complaints. Past medical history of diabetes, states he is compliant with his medication. TRAVEL OUTSIDE OF THE [place] IN LAST 30 DAYS: No - Related Data Allergies/Adverse Reactions: Penicillins Allergy (Unknown, Verified 03/11/17 16:31) Past Medical History - General Information source: Patient - Social History Smoking Status: Never Smoker Frequency of alcohol use: None Drug Abuse: None Lives with: Family Family History: Reviewed & Not Pertinent - Past Medical History Cardiac Medical History: Reports: Hx Hypercholesterolemia Pulmonary Medical History: Denies: Hx Tuberculosis Neurological Medical History: Denies: Hx Seizures Endocrine Medical History: Reports: Hx Diabetes Mellitus Type 2 Renal/ Medical History: Denies: Hx Kidney Stones, Hx Peritoneal Dialysis GI Medical History: Reports: Hx Hiatal Hernia Past Surgical History: Denies: Hx Pacemaker - Immunizations Hx Diphtheria, Pertussis, Tetanus Vaccination: Yes - unknown Review of Systems - Review of Systems Constitutional: No symptoms reported EENT: See HPI Cardiovascular: No symptoms reported Respiratory: No symptoms reported Gastrointestinal: No symptoms reported Genitourinary: No symptoms reported Male Genitourinary: No symptoms reported Musculoskeletal: No symptoms reported Skin: No symptoms reported Hematologic/Lymphatic: No symptoms reported Neurological/Psychological: No symptoms reported Physical Exam - Vital signs Interpretation: Normal - General General appearance: Appears well, Alert In distress: None - HEENT Head: Normocephalic - Minimal conjunctival injected with slight tears, no purulent discharge, normal pupil, normal EOMs, Atraumatic Eyes: Normal Conjunctiva: Injected Cornea: Corneal abrasion - Very tiny corneal abrasion located at the 8 o'clock position, negative Kaylynn sign, no foreign body, no dendrites, otherwise unremarkable exam Extraocular movements intact: Yes Eyelashes: Normal Pupils: PERRL Mouth/Lips: Normal Mucous membranes: Normal Pharynx: Normal Neck: Normal - Respiratory Respiratory status: No respiratory distress Chest status: Nontender Breath sounds: Normal Chest palpation: Normal - Cardiovascular Rhythm: Regular Heart sounds: Normal auscultation Murmur: No - Abdominal Inspection: Normal Distension: No distension Bowel sounds: Normal Tenderness: Nontender Organomegaly: No organomegaly - Back Back: Normal, Nontender - Extremities General upper extremity: Normal inspection, Nontender, Normal color, Normal ROM , Normal temperature General lower extremity: Normal inspection, Nontender, Normal color, Normal ROM , Normal temperature, Normal weight bearing. No: Jesusita's sign - Neurological Neuro grossly intact: Yes Cognition: Normal Orientation: AAOx4 Lani Coma Scale Eye Opening: Spontaneous Lani Coma Scale Verbal: Oriented Lani Coma Scale Motor: Obeys Commands [place] Coma Scale Total: 15 Speech: Normal Motor strength normal: LUE, RUE, LLE, RLE Sensory: Normal - Psychological Associated symptoms: Normal affect, Normal mood - Skin Skin Temperature: Warm Skin Moisture: Dry Skin Color: Normal Course - Re-evaluation Re-evalutation: I attempted to find out why patient has repeated corneal abrasions and conjunctivitis episodes, he admits that he thinks he has a nervous or has an involuntary habit that while he is trying to get to sleep (or while he is sleeping) that he rubs and scratches his eyes. Discharge - Discharge Clinical Impression: Eye pain Qualifiers: Laterality: left Qualified Code(s): H57.12 - Ocular pain, left eye Condition: Stable Disposition: HOME, SELF-CARE Additional Instructions: Examination is consistent with a corneal abrasion which is very small. Use the Polytrim eyedrops: 1 drop 4 times a day for 5 days as prescribed. I recommend that you wear a light shield over your face while you sleep and get in the habit of wearing this so you stop scratching your eyes. Keep your fingernails trimmed. Follow-up with the ophthalmology referral as directed. Return for any concerning symptoms including swelling, discolored discharge, fever, loss of vision, or any other concerning symptoms. Forms: Return to Work Referrals: SAMEERA SZYMANSKI MD [ACTIVE STAFF] - Follow up tomorrow
[2017-06-06] MEDS ORDERED: TETRACAINE HCL 0.5% OPH SOLN 2 ML OS ONE (05:10)
[2017-06-06] MEDS ORDERED: HYDROCODONE/ACETAMINOPHEN 5-325 MG (6 TAB/ER DISP) PO PRN (05:21)
[2017-06-06] MEDS ORDERED: POLYMYXIN B SULFATE/TMP OPH SOLN 10 ML OS ONE (05:21)
[2017-06-06] MEDS ORDERED: POLYMYXIN B SULFATE/TMP OPH SOLN 10 ML ONE (05:34)
[2017-06-06 05:47] VITALS: BP 139/83
== END 2017-06-06 05:55 | disposition home or self-care (01) ==
LOC: ER 04:27
DX: S05.00XA Injury of conjunctiva and corneal abrasion without foreign body, unspecified eye, initial encounter (principal); X58.XXXA Exposure to other specified factors, initial encounter; H57.12 Ocular pain, left eye; E11.9 Type 2 diabetes mellitus without complications; Z79.899 Other long term (current) drug therapy; Z88.0 Allergy status to penicillin
CPT/HCPCS: 99283; J3490

== ENCOUNTER 2017-07-04 16:56 | Emergency (ER) | payer OTHER ==
[2017-07-04 17:10] VITALS: BP 138/74
[2017-07-04] MEDS ORDERED: KETOROLAC TROMETHAMINE 0.45% 4 DROP/0.4 ML DROPERETTE OS ONE (17:50)
--- NOTE | 2017-07-04 17:52 | ER Document Report ---
ED Medical Screen (RME) - General Chief Complaint: Eye Pain Stated Complaint: EYE PAIN Time Seen by Provider: 07/04/17 17:47 Mode of Arrival: Ambulatory Information source: Patient Notes: Pt is a male who presents to ER today for eye watering from both eyes and left eye pain. pt rubs his eyes nervously in his sleep and has a hx of multiple abrasions on chart review. was here a month ago for same thing. denies new injury. TRAVEL OUTSIDE OF THE [place] IN LAST 30 DAYS: No - Related Data Allergies/Adverse Reactions: Penicillins Allergy (Unknown, Verified 07/04/17 16:57) Past Medical History - General Information source: Patient - Past Medical History Cardiac Medical History: Reports: Hx Hypercholesterolemia Pulmonary Medical History: Denies: Hx Tuberculosis Neurological Medical History: Denies: Hx Seizures Endocrine Medical History: Reports: Hx Diabetes Mellitus Type 2 Renal/ Medical History: Denies: Hx Kidney Stones, Hx Peritoneal Dialysis GI Medical History: Reports: Hx Hiatal Hernia Past Surgical History: Denies: Hx Pacemaker - Immunizations Hx Diphtheria, Pertussis, Tetanus Vaccination: Yes - unknown History of Influenza Vaccine for 02/2017 - 07/2017 Season: No Review of Systems - Review of Systems EENT: See HPI Physical Exam - Vital signs Vitals: Temp Pulse Resp BP Pulse Ox 98.8 F 80 20 138/74 H 97 07/04/17 17:09 07/04/17 17:09 07/04/17 17:09 07/04/17 17:09 07/04/17 17:09 - Notes Notes: General: NAD eyes: bilateral eyes watering, bilateral mild injection Course - Vital Signs Vital signs: Temp Pulse Resp BP Pulse Ox 98.8 F 80 20 138/74 H 97 07/04/17 17:09 07/04/17 17:09 07/04/17 17:09 07/04/17 17:09 07/04/17 17:09
--- NOTE | 2017-07-04 18:35 | ER Document Report ---
ED General - General Chief Complaint: Eye Pain Stated Complaint: EYE PAIN Time Seen by Provider: 07/04/17 17:47 Mode of Arrival: Ambulatory Information source: Patient Notes: Patient is a 41-year-old male who presents with left eye pain that started a week ago. He endorses associated eye watering, redness, itching. He has a history of corneal abrasion to the same eye and has had multiple visits for the same here in this emergency department last one was in May of this year. He states he has not been to see an eye doctor yet but is trying to get in with one. He was instructed to wear an eye mask while at night because he believes he is scratching his eyes during the night but he has not started wearing this mask. He denies any changes in vision, headache, fever, chills. He does not wear contacts. TRAVEL OUTSIDE OF THE [place] IN LAST 30 DAYS: No - Related Data Allergies/Adverse Reactions: Penicillins Allergy (Unknown, Verified 07/04/17 16:57) Past Medical History - General Information source: Patient - Social History Smoking Status: Never Smoker Family History: Reviewed & Not Pertinent - Past Medical History Cardiac Medical History: Reports: Hx Hypercholesterolemia Pulmonary Medical History: Denies: Hx Tuberculosis Neurological Medical History: Denies: Hx Seizures Endocrine Medical History: Reports: Hx Diabetes Mellitus Type 2 Renal/ Medical History: Denies: Hx Kidney Stones, Hx Peritoneal Dialysis GI Medical History: Reports: Hx Hiatal Hernia Past Surgical History: Denies: Hx Pacemaker - Immunizations Hx Diphtheria, Pertussis, Tetanus Vaccination: Yes - unknown Review of Systems - Review of Systems Constitutional: See HPI EENT: See HPI Cardiovascular: No symptoms reported Respiratory: No symptoms reported Gastrointestinal: No symptoms reported Genitourinary: No symptoms reported Male Genitourinary: No symptoms reported Musculoskeletal: No symptoms reported Skin: No symptoms reported Hematologic/Lymphatic: No symptoms reported Neurological/Psychological: No symptoms reported Physical Exam - Vital signs Vitals: Temp Pulse Resp BP Pulse Ox 98.8 F 80 20 138/74 H 97 07/04/17 17:09 07/04/17 17:09 07/04/17 17:09 07/04/17 17:09 07/04/17 17:09 - Notes Notes: PHYSICAL EXAM: CONSTITUTIONAL: Alert and oriented, well-appearing and in no acute distress. HENT: Normocephalic, atraumatic. Trachea midline. Uvula midline. Moist mucous membranes. EYES: Pupils equal round and reactive to light, EOM intact. Sclera anicteric, conjunctiva are normal. No entrapment. Small corneal abrasion at 8 o'clock position. Negative Kaylynn sign, no dendrites. NECK: supple without lymphadenopathy. No midline tenderness or paraspinous muscle spasms. No step-offs or deformities. ROM intact. HEART: Regular rate and rhythm without murmurs. LUNGS: CTAB and equal. No wheezes, rales or rhonchi. NEURO: Cranial nerves grossly intact. Normal sensory/motor exams. PSYCH: Normal mood, normal affect. SKIN: Warm and dry. Normal turgor. No rashes or lesions noted. Course - Re-evaluation Re-evalutation: 07/04/17 18:32 Patient seen and examined. Patient is well appearing, well-hydrated with stable vital signs. No visual deficits. Negative Kaylynn sign and no dendrites on floor seen exam. Given Toradol opth soln for pain. Will treat for corneal abrasion. Discussed at length the need for him to wear eye mask at night and follow-up with opthalmology. Will treat with abx opth soln. At this time, will discharge with return precautions and follow-up recommendations. Verbal discharge instructions given at the bedside and opportunity for questions given. Medication warnings reviewed. Patient is in agreement with this plan and has verbalized understanding of return precautions and the need for primary care follow-up in the next 24-72 hours. - Vital Signs Vital signs: Temp Pulse Resp BP Pulse Ox 98.8 F 80 20 138/74 H 97 07/04/17 17:09 07/04/17 17:09 07/04/17 17:09 07/04/17 17:09 07/04/17 17:09 Discharge - Discharge Clinical Impression: Corneal abrasion, left Qualifiers: Encounter type: initial encounter Qualified Code(s): S05.02XA - Injury of conjunctiva and corneal abrasion without foreign body, left eye, initial encounter Condition: Stable Disposition: HOME, SELF-CARE Instructions: Corneal Abrasion ([facility]) Additional Instructions: Use antibiotic ointment to left eye three times a day for 5 days. We highly recommend that you follow-up with the eye doctor as this is a recurring problem for you. Prescriptions: Erythromycin Base [Erythromycin Oph 1 Gm Oint Ud] 1 applic LFT_EYE TID 5 Days # 1 tube Forms: Elevated Blood Pressure Referrals: ODILIA BURGESS MD [Primary Care Provider] - Follow up in 3-5 days
== END 2017-07-04 19:05 | disposition home or self-care (01) ==
LOC: ER 16:56
DX: S05.02XA Injury of conjunctiva and corneal abrasion without foreign body, left eye, initial encounter (principal); H57.12 Ocular pain, left eye; X58.XXXA Exposure to other specified factors, initial encounter
CPT/HCPCS: 99283

== ENCOUNTER → 2017-07-16 | Outpatient (CLI) | payer OTHER ==
[2017-07-16 10:36] LABS: CHOLESTEROL 160.85 mg/dL (0-200); TRIGLYCERIDES 41 mg/dL (<150)
[2017-07-16 10:47] LABS: DIRECT LDL 92 mg/dL (<100)
== END ==
LOC: OD 09:12
DX: E10.8 Type 1 diabetes mellitus with unspecified complications (principal)
CPT/HCPCS: 36415; 80061; 83036; 84443

== ENCOUNTER 2017-10-19 09:51 | Emergency (ER) | payer OTHER ==
--- NOTE | 2017-10-19 11:06 | ER Document Report ---
ED GI/ - General Chief Complaint: Abdominal Pain Stated Complaint: STOMACH PAIN Time Seen by Provider: 10/19/17 11:05 Mode of Arrival: Ambulatory Information source: Patient Notes: 42-year-old male hyperlipidemia and type 2 diabetes is complaining of midline generalized abdominal pain for 1 week. The pain is not changed location or gotten worse. He vomited once yesterday and had a diarrheal stool without blood or black discoloration. No dysuria. No penis or testicle pain. No sore throat runny nose or cough. No chest pain or shortness of breath. No fever or chills. No flank pain. No hematuria. TRAVEL OUTSIDE OF THE [place] IN LAST 30 DAYS: No - Related Data Allergies/Adverse Reactions: Penicillins Allergy (Unknown, Verified 10/19/17 09:53) Past Medical History - General Information source: Patient - Social History Smoking Status: Unknown if Ever Smoked Frequency of alcohol use: None Drug Abuse: None Lives with: Family Family History: Reviewed & Not Pertinent - Past Medical History Cardiac Medical History: Reports: Hx Hypercholesterolemia Endocrine Medical History: Reports: Hx Diabetes Mellitus Type 2 GI Medical History: Reports: Hx Hiatal Hernia Past Surgical History: Denies: Hx Pacemaker - Immunizations Hx Diphtheria, Pertussis, Tetanus Vaccination: Yes - unknown Review of Systems - Review of Systems Constitutional: No symptoms reported EENT: No symptoms reported Cardiovascular: No symptoms reported Respiratory: No symptoms reported Gastrointestinal: See HPI Genitourinary: No symptoms reported Male Genitourinary: No symptoms reported Musculoskeletal: No symptoms reported Skin: No symptoms reported Hematologic/Lymphatic: No symptoms reported Neurological/Psychological: No symptoms reported Physical Exam - Vital signs Vitals: Temp Pulse Resp BP Pulse Ox 98.9 F 87 16 138/76 H 97 10/19/17 10:03 10/19/17 10:03 10/19/17 10:03 10/19/17 10:03 10/19/17 10:03 Interpretation: Normal - General General appearance: Appears well, Alert - HEENT Head: Normocephalic, Atraumatic Eyes: Normal Conjunctiva: Normal Pupils: PERRL Neck: Supple. No: Lymphadenopathy - Respiratory Respiratory status: No respiratory distress Chest status: Nontender Breath sounds: Normal Chest palpation: Normal - Cardiovascular Rhythm: Regular Heart sounds: Normal auscultation Murmur: No - Abdominal Inspection: Normal Distension: No distension Bowel sounds: Normal Tenderness: Nontender. No: Tender Organomegaly: No organomegaly - Back Back: Normal, Nontender. No: CVA tenderness - Extremities General upper extremity: Normal inspection, Nontender, Normal color, Normal ROM , Normal temperature General lower extremity: Normal inspection, Nontender, Normal color, Normal ROM , Normal temperature, Normal weight bearing. No: Jesusita's sign - Neurological Neuro grossly intact: Yes Cognition: Normal Orientation: AAOx4 [place] Coma Scale Eye Opening: Spontaneous [place] Coma Scale Verbal: Oriented [place] Coma Scale Motor: Obeys Commands [place] Coma Scale Total: 15 Speech: Normal Motor strength normal: LUE, RUE, LLE, RLE Sensory: Normal - Psychological Associated symptoms: Normal affect, Normal mood - Skin Skin Temperature: Warm Skin Moisture: Dry Skin Color: Normal Skin irregularity: negative: Rash Course - Re-evaluation Re-evalutation: 10/19/17 12:54 Abdomen is nontender the labs are normal. He is active bowel sounds. I will send him home but he will return if the pain worsens or develops new symptoms. No hernia palpated. - Vital Signs Vital signs: Temp Pulse Resp BP Pulse Ox 98.9 F 87 16 138/76 H 97 10/19/17 10:03 10/19/17 10:03 10/19/17 10:03 10/19/17 10:03 10/19/17 10:03 - Laboratory Result Diagrams: 10/19/17 11:30 10/19/17 11:30 Laboratory results interpreted by me: 10/19/17 10/19/17 10/19/17 11:30 11:30 11:30 RBC 5.89 H MCV 75 L MCH 25.3 L RDW 14.2 H Sodium 146.6 H Chloride 108 H Urine Glucose (UA) 150 H Discharge - Discharge Clinical Impression: Vomiting and diarrhea, Abdominal pain Condition: Good Disposition: HOME, SELF-CARE Instructions: Abdominal Pain ([facility]), Diarrhea, Nonspecific ([facility]), Nausea or Vomiting, Nonspecific ([facility]) Additional Instructions: Plenty of fluids Advance diet as tolerated Return to the emergency room if symptoms worsen Lab work today was normal You may continue the [facility] Follow[facility]up with the [facility] Referrals: [facility] [Primary Care Provider] - Follow up as needed
[2017-10-19 11:58] LABS: ALANINE AMINOTRANSFERASE 48 U/L (21-72); ALBUMIN 4.3 g/dL (3.5-5.0); ALKALINE PHOSPHATASE 89 U/L (38-126); ANION GAP 11 (5-19); ASPARTATE AMINO TRANSFERASE 33 U/L (17-59); BILIRUBIN,DIRECT 0.3 mg/dL (0.0-0.4); BILIRUBIN,TOTAL 0.4 mg/dL (0.2-1.3); BLOOD UREA NITROGEN 16 mg/dL (7-20); CALCIUM 9.7 mg/dL (8.4-10.2); CARBON DIOXIDE 28 mmol/L (22-30); CHLORIDE 108 mmol/L (98-107); GLUCOSE 83 mg/dL (75-110); LIPASE 54.4 U/L (23-300); POTASSIUM 4.2 mmol/L (3.6-5.0); SODIUM 146.6 mmol/L (137-145); TOTAL PROTEIN 7.6 g/dL (6.3-8.2)
[2017-10-19 12:01] LABS: ABSOLUTE EOSINOPHILS # (AUTO) 0.1 10^3/uL (0.0-0.6); ABSOLUTE LYMPHOCYTES (AUTO) 1.4 10^3/uL (0.5-4.7); ABSOLUTE MONOCYTES (AUTO) 0.3 10^3/uL (0.1-1.4); ABSOLUTE NEUT (AUTO) 2.2 10^3/uL (1.7-8.2); BASOPHILS % (AUTO) 0.9 % (0-2); EOSINOPHILS % (AUTO) 2.8 % (0-6); HEMATOCRIT 43.9 % (37.9-51.0); HEMOGLOBIN 14.9 g/dL (13.5-17.0); LYMPHOCYTES % (AUTO) 34.5 % (13-45); MEAN CORPUSCULAR HEMOGLOBIN 25.3 pg (27.0-33.4); MEAN CORPUSCULAR HGB CONC 33.9 g/dL (32.0-36.0); MEAN CORPUSCULAR VOLUME 75 fl (80-97); MONOCYTES % (AUTO) 7.5 % (3-13); PLATELET COUNT 235 10^3/uL (150-450); RED BLOOD COUNT 5.89 10^6/uL (4.35-5.55); RED CELL DISTRIBUTION WIDTH 14.2 % (11.5-14.0); SEGMENTED NEUTROPHILS % (AUTO) 54.3 % (42-78); TOTAL CELLS COUNTED % (AUTO) 100 %; WHITE BLOOD COUNT 4.1 10^3/uL (4.0-10.5)
[2017-10-19 12:11] LABS: APPEARANCE,URINE CLEAR; BILIRUBIN,URINE NEGATIVE (NEGATIVE); COLOR,URINE YELLOW; GLUCOSE, URINE 150 mg/dL (NEGATIVE); KETONES,URINE NEGATIVE (NEGATIVE); LEUKOCYTE ESTERASE,URINE NEGATIVE (NEGATIVE); NITRITE,URINE NEGATIVE (NEGATIVE); PROTEIN,URINE NEGATIVE (NEGATIVE); URINE SPECIFIC GRAVITY 1.018; UROBILINOGEN,URINE NEGATIVE mg/dL (<2.0)
[2017-10-19 13:08] VITALS: BP 104/59
== END 2017-10-19 13:08 | disposition home or self-care (01) ==
LOC: ER 09:51
DX: R11.10 Vomiting, unspecified (principal); R19.7 Diarrhea, unspecified; R10.84 Generalized abdominal pain; E78.00 Pure hypercholesterolemia, unspecified; E11.9 Type 2 diabetes mellitus without complications; Z88.0 Allergy status to penicillin
CPT/HCPCS: 36415; 80053; 81001; 83690; 85025; 99284

== ENCOUNTER 2017-10-20 06:00 | Emergency (ER) | payer OTHER ==
--- NOTE | 2017-10-20 07:06 | ER Document Report ---
ED GI/ - General Chief Complaint: Epigastric Pain Stated Complaint: NAUSEA,STOMACH/EYE PAIN Time Seen by Provider: 10/20/17 07:06 Mode of Arrival: Ambulatory Information source: Patient Notes: 42-year-old male returns today complaining of generalized burning abdominal pain and burning in his chest when he eats or drinks anything. He was seen in the emergency department yesterday for similar symptoms with negative lab work and a negative abdominal exam. He states it continued to hurt all night he did not get any sleep at his girlfriend's. She had similar symptoms over the weekend. He had one episode of diarrhea without blood on Tuesday. He told his boss he would come to work today but when he took his Prilosec and then water afterwards he felt the burning all the way down into his stomach and he threw up. It is non-bilious vomiting. No fever or chills. TRAVEL OUTSIDE OF THE [place] IN LAST 30 DAYS: No - Related Data Allergies/Adverse Reactions: Penicillins Allergy (Unknown, Verified 10/19/17 09:53) Past Medical History - General Information source: Patient - Social History Smoking Status: Never Smoker Frequency of alcohol use: None Drug Abuse: None Occupation: [employer] Lives with: Spouse/Significant other Family History: Reviewed & Not Pertinent - Past Medical History Cardiac Medical History: Reports: Hx Hypercholesterolemia Endocrine Medical History: Reports: Hx Diabetes Mellitus Type 2 GI Medical History: Reports: Hx Gastroesophageal Reflux Disease, Hx Hiatal Hernia - Immunizations Hx Diphtheria, Pertussis, Tetanus Vaccination: Yes - unknown Review of Systems - Review of Systems Constitutional: No symptoms reported EENT: See HPI Cardiovascular: No symptoms reported Respiratory: No symptoms reported Gastrointestinal: See HPI Genitourinary: No symptoms reported Male Genitourinary: No symptoms reported Musculoskeletal: No symptoms reported Skin: No symptoms reported Hematologic/Lymphatic: No symptoms reported Neurological/Psychological: No symptoms reported Physical Exam - Vital signs Vitals: Temp Pulse Resp BP Pulse Ox 98.6 F 95 16 144/82 H 96 10/20/17 06:07 10/20/17 06:07 10/20/17 06:07 10/20/17 06:07 10/20/17 06:07 Interpretation: Normal - General General appearance: Appears well, Alert In distress: None - HEENT Head: Normocephalic, Atraumatic Eyes: Normal Conjunctiva: Normal Pupils: PERRL Visual acuity- Left eye: 20/25 Visual acuity- Both eyes: 20/25 Corrective lenses worn: Yes Anterior chamber: Normal Mucous membranes: Moist Pharynx: Normal Neck: Supple. No: Lymphadenopathy - Respiratory Respiratory status: No respiratory distress Chest status: Nontender Breath sounds: Normal Chest palpation: Normal - Cardiovascular Rhythm: Regular Heart sounds: Normal auscultation Murmur: No - Abdominal Inspection: Normal Distension: No distension Bowel sounds: Normal Tenderness: Nontender. No: Tender Organomegaly: No organomegaly. No: Hepatomegaly, Splenomegaly - Back Back: Normal, Nontender. No: CVA tenderness - Extremities General upper extremity: Normal inspection, Nontender, Normal color, Normal ROM , Normal temperature General lower extremity: Normal inspection, Nontender, Normal color, Normal ROM , Normal temperature, Normal weight bearing. No: Jesusita's sign - Neurological Neuro grossly intact: Yes Cognition: Normal Orientation: AAOx4 [place] Coma Scale Eye Opening: Spontaneous Lani Coma Scale Verbal: Oriented Lani Coma Scale Motor: Obeys Commands Lani Coma Scale Total: 15 Speech: Normal Motor strength normal: LUE, RUE, LLE, RLE Sensory: Normal - Psychological Associated symptoms: Normal affect, Normal mood - Skin Skin Temperature: Warm Skin Moisture: Dry Skin Color: Normal Skin irregularity: negative: Rash Course - Re-evaluation Re-evalutation: 10/20/17 10:56 Patient states the Maalox and viscous lidocaine to help with the burning esophagus and abdominal discomfort. The acute abdomen is negative his lab work is again negative. I did measure his eye pressures 12-20 and the Steve-Pen is normal. I am getting left eye 23.95, and 31.95 in the right eye. Both of those are elevated., will refer to opthamologist- who is best second jobs for the - [facility]. 10/20/17 11:[address] Gee who will work the patient into the schedule today to recheck his eye pressures and explained this to the pt 10/21/17 20:35 - Vital Signs Vital signs: Temp Pulse Resp BP Pulse Ox 98.4 F 91 16 127/75 H 97 10/20/17 11:58 10/20/17 11:58 10/20/17 11:58 10/20/17 11:58 10/20/17 11:58 - Laboratory Result Diagrams: 10/20/17 07:25 10/20/17 07:25 Laboratory results interpreted by me: 10/20/17 10/20/17 10/20/17 07:25 07:25 09:50 RBC 5.62 H MCV 74 L MCH 25.4 L RDW 14.1 H Glucose 332 H Urine Glucose (UA) >=500 H Urine Ketones 20 H Discharge - Discharge Clinical Impression: Left eye pain, Elevated eye pressures Abdominal pain Qualifiers: Abdominal location: upper abdomen, unspecified Qualified Code(s): R10.10 - Upper abdominal pain, unspecified Condition: Good Disposition: HOME, SELF-CARE Instructions: Abdominal Pain ([facility]) Additional Instructions: go to the eye doctor now, they will work you into the schedule to recheck your eye pressures Forms: Return to Work Referrals: MARIEL GEE DO [ACTIVE STAFF] - 10/20/17
[2017-10-20] MEDS ORDERED: LIDOCAINE 2% VISCOUS SOLN 20 ML UDCUP PO ONE (07:25)
[2017-10-20] MEDS ORDERED: MAG HYDROX/AL HYDROX/SIMETH SUSP 30 ML UDCUP PO ONE (07:25)
[2017-10-20 07:36] LABS: ABSOLUTE EOSINOPHILS # (AUTO) 0.1 10^3/uL (0.0-0.6); ABSOLUTE LYMPHOCYTES (AUTO) 1.3 10^3/uL (0.5-4.7); ABSOLUTE MONOCYTES (AUTO) 0.3 10^3/uL (0.1-1.4); BASOPHILS % (AUTO) 0.6 % (0-2); HEMATOCRIT 41.6 % (37.9-51.0); HEMOGLOBIN 14.3 g/dL (13.5-17.0); LYMPHOCYTES % (AUTO) 22.1 % (13-45); MEAN CORPUSCULAR HEMOGLOBIN 25.4 pg (27.0-33.4); MEAN CORPUSCULAR HGB CONC 34.3 g/dL (32.0-36.0); MEAN CORPUSCULAR VOLUME 74 fl (80-97); MONOCYTES % (AUTO) 5.5 % (3-13); PLATELET COUNT 231 10^3/uL (150-450); RED BLOOD COUNT 5.62 10^6/uL (4.35-5.55); RED CELL DISTRIBUTION WIDTH 14.1 % (11.5-14.0); SEGMENTED NEUTROPHILS % (AUTO) 70.8 % (42-78); TOTAL CELLS COUNTED % (AUTO) 100 %; WHITE BLOOD COUNT 5.7 10^3/uL (4.0-10.5)
[2017-10-20 07:44] LABS: ALANINE AMINOTRANSFERASE 50 U/L (21-72); ALBUMIN 4.2 g/dL (3.5-5.0); ALKALINE PHOSPHATASE 100 U/L (38-126); ANION GAP 11 (5-19); ASPARTATE AMINO TRANSFERASE 29 U/L (17-59); BILIRUBIN,DIRECT 0.3 mg/dL (0.0-0.4); BILIRUBIN,TOTAL 0.5 mg/dL (0.2-1.3); BLOOD UREA NITROGEN 15 mg/dL (7-20); CALCIUM 9.7 mg/dL (8.4-10.2); CARBON DIOXIDE 27 mmol/L (22-30); CHLORIDE 106 mmol/L (98-107); GLUCOSE 332 mg/dL (75-110); LIPASE 58.8 U/L (23-300); POTASSIUM 4.7 mmol/L (3.6-5.0); SODIUM 143.6 mmol/L (137-145); TOTAL PROTEIN 7.5 g/dL (6.3-8.2)
[2017-10-20 10:15] LABS: APPEARANCE,URINE CLEAR; BILIRUBIN,URINE NEGATIVE (NEGATIVE); COLOR,URINE YELLOW; GLUCOSE, URINE >=500 mg/dL (NEGATIVE); KETONES,URINE 20 mg/dL (NEGATIVE); LEUKOCYTE ESTERASE,URINE NEGATIVE (NEGATIVE); NITRITE,URINE NEGATIVE (NEGATIVE); PROTEIN,URINE NEGATIVE (NEGATIVE); URINE SPECIFIC GRAVITY 1.032; UROBILINOGEN,URINE NEGATIVE mg/dL (<2.0)
[2017-10-20] MEDS ORDERED: TETRACAINE HCL 0.5% OPH SOLN 2 ML OS ONE (10:21)
--- NOTE | 2017-10-20 10:35 | RADIOLOGY REPORT (SQ) ---
EXAM DESCRIPTION: ACUTE ABDOMEN SERIES COMPLETED DATE/TIME: 10/20/2017 10:26 am REASON FOR STUDY: abd pain COMPARISON: None. NUMBER OF VIEWS: Three views. TECHNIQUE: Frontal chest, supine abdomen and upright/decubitus abdomen radiographic images acquired. LIMITATIONS: None. FINDINGS: CHEST: Lungs clear of infiltrates. FREE AIR: None. No abnormal gas collections. BOWEL GAS PATTERN: Nonobstructive pattern. No dilated loops or air fluid levels. CALCIFICATIONS: No suspicious calcifications. HARDWARE: None in the abdomen. SOFT TISSUES: No gross mass or suggestion of organomegaly. BONES: No acute fracture. No worrisome bone lesions. OTHER: No other significant finding. IMPRESSION: NO RADIOGRAPHIC EVIDENCE FOR ACUTE ABDOMINAL DISEASE. TECHNICAL DOCUMENTATION: JOB ID: [id number] [employer]- All Rights Reserved Reading location - IP/workstation name: [email or web address]
[2017-10-20 11:59] VITALS: BP 127/75
== END 2017-10-20 11:58 | disposition home or self-care (01) ==
LOC: ER 06:00
DX: R10.13 Epigastric pain (principal); H40.053 Ocular hypertension, bilateral; H57.12 Ocular pain, left eye; R11.10 Vomiting, unspecified; E11.9 Type 2 diabetes mellitus without complications; Z88.0 Allergy status to penicillin; Z87.19 Personal history of other diseases of the digestive system
CPT/HCPCS: 99284; 36415; 83690; 84443; 85025; 80053; 81001; 74022; J3490

== ENCOUNTER 2017-10-22 20:48 | Emergency (ER) | payer OTHER ==
[2017-10-22] MEDS ORDERED: NORMAL SALINE 1000 ML 1,000 ML IV ONE (23:06)
[2017-10-22] MEDS ORDERED: MORPHINE SULFATE 10 MG/ML INJ IV PRN (23:06)
[2017-10-22] MEDS ORDERED: METOCLOPRAMIDE HCL INJ/PF 10 MG/2 ML SDV IV ONE (23:06)
[2017-10-23 00:44] LABS: ABSOLUTE BASOPHILS # (AUTO) 0.1 10^3/uL (0.0-0.2); ABSOLUTE EOSINOPHILS # (AUTO) 0.1 10^3/uL (0.0-0.6); ABSOLUTE LYMPHOCYTES (AUTO) 1.6 10^3/uL (0.5-4.7); ABSOLUTE MONOCYTES (AUTO) 0.4 10^3/uL (0.1-1.4); ABSOLUTE NEUT (AUTO) 4.4 10^3/uL (1.7-8.2); BASOPHILS % (AUTO) 0.9 % (0-2); EOSINOPHILS % (AUTO) 1.1 % (0-6); HEMATOCRIT 46.3 % (37.9-51.0); HEMOGLOBIN 15.7 g/dL (13.5-17.0); LYMPHOCYTES % (AUTO) 24.1 % (13-45); MEAN CORPUSCULAR HEMOGLOBIN 25.2 pg (27.0-33.4); MEAN CORPUSCULAR HGB CONC 33.9 g/dL (32.0-36.0); MEAN CORPUSCULAR VOLUME 74 fl (80-97); PLATELET COUNT 255 10^3/uL (150-450); RED BLOOD COUNT 6.22 10^6/uL (4.35-5.55); RED CELL DISTRIBUTION WIDTH 14.1 % (11.5-14.0); SEGMENTED NEUTROPHILS % (AUTO) 67.9 % (42-78); TOTAL CELLS COUNTED % (AUTO) 100 %; WHITE BLOOD COUNT 6.5 10^3/uL (4.0-10.5)
[2017-10-23 00:46] LABS: ALANINE AMINOTRANSFERASE 46 U/L (21-72); ALBUMIN 4.9 g/dL (3.5-5.0); ALKALINE PHOSPHATASE 115 U/L (38-126); ANION GAP 14 (5-19); ASPARTATE AMINO TRANSFERASE 37 U/L (17-59); BILIRUBIN,DIRECT 0.4 mg/dL (0.0-0.4); BILIRUBIN,TOTAL 0.6 mg/dL (0.2-1.3); BLOOD UREA NITROGEN 17 mg/dL (7-20); CALCIUM 9.9 mg/dL (8.4-10.2); CARBON DIOXIDE 25 mmol/L (22-30); CHLORIDE 106 mmol/L (98-107); GLUCOSE 177 mg/dL (75-110); LIPASE 46.9 U/L (23-300); POTASSIUM 4.6 mmol/L (3.6-5.0); SODIUM 145.3 mmol/L (137-145); TOTAL PROTEIN 9.2 g/dL (6.3-8.2)
--- NOTE | 2017-10-23 00:56 | RADIOLOGY REPORT (SQ) ---
EXAM DESCRIPTION: US ABDOMEN LIMITED CLINICAL HISTORY: 42 years Male, upper ab pain Comparison: None. LIMITATIONS: Premedicated. Bowel gas. FINDINGS: Gallbladder, indeterminate sonographic Ponce's test, liver, a 0.3-cm diameter common bile duct, no intrahepatic ductal dilation, 9-cm right kidney, partially obscured pancreas, visualized vasculature/abdominal aorta, and no significant ascites appear otherwise unremarkable. IMPRESSION: No acute findings.
--- NOTE | 2017-10-23 01:36 | ER Document Report ---
ED General - General Chief Complaint: Abdominal Pain Stated Complaint: ABDOMINAL PAIN/NAUSOUS Time Seen by Provider: 10/22/17 23:02 Notes: Patient is a 42-year-old male with a past medical history of type 1 diabetes with a history of relatively poor control who presents with 3-4 days of ongoing epigastric abdominal pain with associated nausea, vomiting and diarrhea. The patient was seen on 2 separate occasions prior to today in the emergency department and diagnosed with gastritis. He reports that he has been taking the Prilosec as prescribed but did not receive anything for nausea. He reports that he has been unable to keep anything down for the past 12-15 hours even water. He describes the pain in his upper abdomen as being a throbbing, aching , constant pain. The pain is worsened by attempts at eating or drinking. Nothing seems to improve the symptoms. He notes a remote history of similar symptoms in the past but cannot recall what he was diagnosed with. He has no prior abdominal surgical history. He has been unable to see his primary care doctor regarding today's concerns. He does not have a GI doctor or an instrumentation chemist. TRAVEL OUTSIDE OF THE [place] IN LAST 30 DAYS: No - Related Data Allergies/Adverse Reactions: Penicillins Allergy (Unknown, Verified 10/22/17 20:50) Past Medical History - General Information source: Patient - Social History Smoking Status: Never Smoker Frequency of alcohol use: None Drug Abuse: None Lives with: Spouse/Significant other Family History: Reviewed & Not Pertinent - Past Medical History Cardiac Medical History: Reports: Hx Hypercholesterolemia Pulmonary Medical History: Denies: Hx Tuberculosis Neurological Medical History: Denies: Hx Seizures Endocrine Medical History: Reports: Hx Diabetes Mellitus Type 2 Renal/ Medical History: Denies: Hx Kidney Stones, Hx Peritoneal Dialysis GI Medical History: Reports: Hx Gastroesophageal Reflux Disease, Hx Hiatal Hernia Past Surgical History: Denies: Hx Pacemaker - Immunizations Hx Diphtheria, Pertussis, Tetanus Vaccination: Yes - unknown Review of Systems - Review of Systems Notes: Constitutional: Negative for fever. HENT: Negative for sore throat. Eyes: Negative for visual changes. Cardiovascular: Negative for chest pain. Respiratory: Negative for shortness of breath. Gastrointestinal: Positive for abdominal pain, vomiting and diarrhea Genitourinary: Negative for dysuria. Musculoskeletal: Negative for back pain. Skin: Negative for rash. Neurological: Negative for headaches, weakness or numbness. 10 point ROS negative except as marked above and in HPI. Physical Exam - Vital signs Vitals: Temp Pulse Resp BP Pulse Ox 99.2 F 106 H 16 129/77 H 97 10/22/17 20:54 10/22/17 20:54 10/22/17 20:54 10/22/17 20:54 10/22/17 20:54 Interpretation: Tachycardic Notes: PHYSICAL EXAMINATION: GENERAL: Appears mildly uncomfortable but in no acute distress HEAD: Atraumatic, normocephalic. EYES: Pupils equal round and reactive to light, extraocular movements intact, sclera anicteric, conjunctiva are normal. ENT: nares patent, oropharynx clear without exudates. Moderately dry mucous membranes. NECK: Normal range of motion, supple without lymphadenopathy LUNGS: Breath sounds clear to auscultation bilaterally and equal. No wheezes rales or rhonchi. HEART: Regular rate and rhythm without murmurs ABDOMEN: Soft, nontender, normoactive bowel sounds. No guarding, no rebound. No masses appreciated. EXTREMITIES: Normal range of motion, no pitting or edema. No cyanosis. NEUROLOGICAL: No focal neurological deficits. Moves all extremities spontaneously and on command. PSYCH: Normal mood, normal affect. SKIN: Warm, Dry, normal turgor, no rashes or lesions noted. Course - Re-evaluation Re-evalutation: 10/23/17 01:33 Patient presents with signs and symptoms most consistent with likely diabetic gastroparesis. Patient has been having nausea and vomiting as well as intermittent diarrheal bowel movements and associated epigastric abdominal pain. No signs of diabetic ketoacidosis on laboratories. Patient has no focal abdominal tenderness on examination. Right upper quadrant ultrasound does not demonstrate any evidence of acute cholecystitis or cholelithiasis. Lipase is normal. No LFT changes. Based on history and exam, I do not suspect ACS, pulmonary embolus, SBO, mesenteric ischemia, acute pancreatitis, biliary pathology, or an abdominal aortic dissection. Patient has improved after receiving metoclopramide by mouth and has tolerated oral intake. At this time will discharge with return precautions and follow-up recommendations. Verbal discharge instructions given a the bedside and opportunity for questions given. Medication warnings reviewed. Patient is in agreement with this plan and has verbalized understanding of return precautions and the need for primary care follow-up in the next 24-72 hours. - Vital Signs Vital signs: Temp Pulse Resp BP Pulse Ox 99.2 F 106 H 16 129/77 H 97 10/22/17 20:54 10/22/17 20:54 10/22/17 20:54 10/22/17 20:54 10/22/17 20:54 - Laboratory Result Diagrams: 10/23/17 00:00 10/23/17 00:00 Laboratory results interpreted by me: 10/23/17 10/23/17 00:00 00:00 RBC 6.22 H MCV 74 L MCH 25.2 L RDW 14.1 H Sodium 145.3 H Glucose 177 H Total Protein 9.2 H - Diagnostic Test Radiology reviewed: Reports reviewed Discharge - Discharge Clinical Impression: Epigastric abdominal pain, Dehydration, Diabetic gastroparesis Nausea and vomiting Qualifiers: Vomiting type: unspecified Vomiting Intractability: non-intractable Qualified Code(s): R11.2 - Nausea with vomiting, unspecified Condition: Good Disposition: HOME, SELF-CARE Additional Instructions: Your symptoms are most consistent with diabetic gastroparesis. The remainder of your labs and ultrasound your gallbladder are normal. You may take the Reglan that has been prescribed as needed for abdominal pain, nausea or vomiting. You need to follow-up with an instrumentation chemist and a GI doctor for gastric motility study and to optimize your diabetes management. [facility] with [facility]. Return to the emergency department immediately if you become unable to tolerate fluids, have worsening pain, develop a fever greater than 101F, consistently have blood sugars above 300, or have any other symptoms that are worrisome to you. Prescriptions: Metoclopramide HCl [Reglan 10 mg Tablet] 1 - 2 tab PO ASDIR PRN #30 tablet PRN Reason: Referrals: ODILIA BURGESS MD [Primary Care Provider] - Follow up in 3-5 days
[2017-10-23 02:56] VITALS: BP 130/65
== END 2017-10-23 02:57 | disposition home or self-care (01) ==
LOC: ER 20:48
DX: E11.43 Type 2 diabetes mellitus with diabetic autonomic (poly)neuropathy (principal); K31.84 Gastroparesis; R10.13 Epigastric pain; R11.2 Nausea with vomiting, unspecified; R19.7 Diarrhea, unspecified; E86.0 Dehydration; Z79.899 Other long term (current) drug therapy; Z88.0 Allergy status to penicillin
CPT/HCPCS: 99284; 96374; 36415; 83690; 85025; 80053; 76705; J2765; J2270; J7030

== ENCOUNTER 2018-08-28 01:26 | Emergency (ER) | payer SELFPAY ==
[2018-08-28] MEDS ORDERED: NORMAL SALINE 1000 ML 1,000 ML IV ONE (01:45)
[2018-08-28] MEDS ORDERED: ONDANSETRON HCL INJ/PF 4 MG/2 ML SDV IV ONE (01:45)
[2018-08-28 02:38] LABS: ABSOLUTE EOSINOPHILS # (AUTO) 0.2 10^3/uL (0.0-0.6); ABSOLUTE LYMPHOCYTES (AUTO) 1.5 10^3/uL (0.5-4.7); ABSOLUTE MONOCYTES (AUTO) 0.4 10^3/uL (0.1-1.4); BASOPHILS % (AUTO) 0.9 % (0-2); EOSINOPHILS % (AUTO) 3.2 % (0-6); HEMATOCRIT 39.1 % (37.9-51.0); HEMOGLOBIN 13.4 g/dL (13.5-17.0); LYMPHOCYTES % (AUTO) 30.2 % (13-45); MEAN CORPUSCULAR HEMOGLOBIN 25.3 pg (27.0-33.4); MEAN CORPUSCULAR HGB CONC 34.1 g/dL (32.0-36.0); MEAN CORPUSCULAR VOLUME 74 fl (80-97); MONOCYTES % (AUTO) 7.3 % (3-13); PLATELET COUNT 247 10^3/uL (150-450); RED BLOOD COUNT 5.29 10^6/uL (4.35-5.55); RED CELL DISTRIBUTION WIDTH 14.1 % (11.5-14.0); SEGMENTED NEUTROPHILS % (AUTO) 58.4 % (42-78); TOTAL CELLS COUNTED % (AUTO) 100 %; WHITE BLOOD COUNT 5.1 10^3/uL (4.0-10.5)
[2018-08-28 02:43] LABS: ALANINE AMINOTRANSFERASE 53 U/L (21-72); ALKALINE PHOSPHATASE 96 U/L (38-126); ANION GAP 7 (5-19); ASPARTATE AMINO TRANSFERASE 30 U/L (17-59); BILIRUBIN,DIRECT 0.2 mg/dL (0.0-0.4); BILIRUBIN,TOTAL 0.4 mg/dL (0.2-1.3); BLOOD UREA NITROGEN 20 mg/dL (7-20); CALCIUM 9.1 mg/dL (8.4-10.2); CARBON DIOXIDE 26 mmol/L (22-30); CHLORIDE 106 mmol/L (98-107); GLUCOSE 319 mg/dL (75-110); LIPASE 58.1 U/L (23-300); POTASSIUM 4.2 mmol/L (3.6-5.0); SODIUM 138.5 mmol/L (137-145); TOTAL PROTEIN 7.3 g/dL (6.3-8.2)
[2018-08-28] MEDS ORDERED: FAMOTIDINE 20 MG TABLET PO ONE (03:45)
--- NOTE | 2018-08-28 03:45 | RADIOLOGY REPORT (SQ) ---
EXAM DESCRIPTION: [facility]: US ABDOMEN LIMITED CLINICAL HISTORY: 42 years Male; upper ab pain, vomitign TECHNIQUE: Right upper quadrant ultrasound was performed. COMPARISON: 10/23/2017 FINDINGS: Pancreas: Not visualized due to bowel gas Liver: 14.8 cm long Portal venous flow is hepatopedal, normal. Gallbladder: normal with no gallstones or sonographic evidence for acute cholecystitis. No pericholecystic fluid. No sonographic Ponce's sign. Common bile duct: 3 mm mm. Right kidney: 10 x 4.5 x 5.7 cm. No hydronephrosis. Aorta is 1.7 cm maximum diameter. IVC patent. IMPRESSION: 1. Normal right upper quadrant ultrasound.
[2018-08-28] MEDS ORDERED: LIDOCAINE 2% VISCOUS SOLN 20 ML UDCUP PO ONE (03:46)
[2018-08-28] MEDS ORDERED: METOCLOPRAMIDE HCL ORAL SOLN 10 MG/10 ML UDCUP PO ONE (03:46)
[2018-08-28] MEDS ORDERED: MAG HYDROX/AL HYDROX/SIMETH SUSP 30 ML UDCUP PO ONE (03:46)
--- NOTE | 2018-08-28 03:53 | ER Document Report ---
ED General - General Chief Complaint: Nausea/Vomiting Stated Complaint: STOMACH ACHE Time Seen by Provider: 08/28/18 01:44 Primary Care Provider: [facility] [Primary Care Provider] - Follow up as needed Notes: Patient is a 42-year-old male with a past medical history of insulin-dependent diabetes who presents with acute onset of epigastric abdominal pain with associated nausea and vomiting after eating [employer]. The patient reports that within 30 minutes of eating a hamburger he developed a cramping, moderate to severe pain in his epigastrium and right upper quadrant with associated nonbilious vomiting. States that symptoms have abated substantially since that time without intervention. No obvious worsening factors when symptoms are present. Patient denies any chest pain, shortness of breath, pain rating to the arms, jaw or back. Has a history of similar symptoms in the past related to gastritis and reflux believes this may be the same. Has not seen his primary doctor regarding today's concerns. At the time of my evaluation he denies any symptoms of any kind. TRAVEL OUTSIDE OF THE [place] IN LAST 30 DAYS: No - Related Data Allergies/Adverse Reactions: Penicillins Allergy (Unknown, Verified 08/28/18 01:54) Past Medical History - General Information source: Patient - Social History Smoking Status: Never Smoker Frequency of alcohol use: None Drug Abuse: None Family History: Reviewed & Not Pertinent Patient has suicidal ideation: No Patient has homicidal ideation: No - Past Medical History Cardiac Medical History: Reports: Hx Hypercholesterolemia Pulmonary Medical History: Denies: Hx Tuberculosis Neurological Medical History: Denies: Hx Seizures Endocrine Medical History: Reports: Hx Diabetes Mellitus Type 1, Hx Diabetes Mellitus Type 2 Renal/ Medical History: Denies: Hx Kidney Stones, Hx Peritoneal Dialysis GI Medical History: Reports: Hx Gastroesophageal Reflux Disease, Hx Hiatal Hernia Past Surgical History: Denies: Hx Pacemaker - Immunizations Hx Diphtheria, Pertussis, Tetanus Vaccination: Yes - unknown Review of Systems - Review of Systems Notes: Constitutional: Negative for fever. HENT: Negative for sore throat. Eyes: Negative for visual changes. Cardiovascular: Negative for chest pain. Respiratory: Negative for shortness of breath. Gastrointestinal: Positive for epigastric abdominal pain, nausea and vomiting Genitourinary: Negative for dysuria. Musculoskeletal: Negative for back pain. Skin: Negative for rash. Neurological: Negative for headaches, weakness or numbness. 10 point ROS negative except as marked above and in HPI. Physical Exam - Vital signs Vitals: Temp Pulse Resp BP Pulse Ox 98.9 F 103 H 16 149/77 H 92 08/28/18 01:32 08/28/18 01:32 08/28/18 01:32 08/28/18 01:32 08/28/18 01:32 Interpretation: Hypertensive, Tachycardic Notes: PHYSICAL EXAMINATION: GENERAL: Well-appearing, well-nourished and in no acute distress. HEAD: Atraumatic, normocephalic. EYES: Pupils equal round and reactive to light, extraocular movements intact, sclera anicteric, conjunctiva are normal. ENT: nares patent, oropharynx clear without exudates. Moist mucous membranes. NECK: Normal range of motion, supple without lymphadenopathy LUNGS: Breath sounds clear to auscultation bilaterally and equal. No wheezes rales or rhonchi. HEART: Regular rate and rhythm without murmurs ABDOMEN: Soft, nontender, normoactive bowel sounds. No guarding, no rebound. No masses appreciated. EXTREMITIES: Normal range of motion, no pitting or edema. No cyanosis. NEUROLOGICAL: No focal neurological deficits. Moves all extremities spontaneously and on command. PSYCH: Normal mood, normal affect. SKIN: Warm, Dry, normal turgor, no rashes or lesions noted. Course - Re-evaluation Re-evalutation: 08/28/18 03:54 Patient presents with epigastric abdominal pain with associated reflux symptoms most consistent with likely gastritis. Patient has no focal abdominal tenderness on examination. Right upper quadrant ultrasound does not demonstrate any evidence of acute cholecystitis or cholelithiasis. Lipase is normal. No LFT changes. Based on history and exam, I do not suspect ACS, pulmonary embolus, SBO, mesenteric ischemia, acute pancreatitis, biliary pathology, or an abdominal aortic dissection. Patient has had improvement of symptoms here with a GI cocktail. At this time will discharge with return precautions and follow-up recommendations. Verbal discharge instructions given a the bedside and opportunity for questions given. Medication warnings reviewed. Patient is in agreement with this plan and has verbalized understanding of return precautions and the need for primary care follow-up in the next 24-72 hours. - Vital Signs Vital signs: Temp Pulse Resp BP Pulse Ox 98.9 F 103 H 16 149/77 H 92 08/28/18 01:32 08/28/18 01:32 08/28/18 01:32 08/28/18 01:32 08/28/18 01:32 - Laboratory Result Diagrams: 08/28/18 02:22 08/28/18 02:22 Laboratory results interpreted by me: 08/28/18 08/28/18 02:22 02:22 Hgb 13.4 L MCV 74 L MCH 25.3 L RDW 14.1 H Glucose 319 H Discharge - Discharge Clinical Impression: Epigastric abdominal pain Nausea and vomiting Qualifiers: Vomiting type: unspecified Vomiting Intractability: non-intractable Qualified Code(s): R11.2 - Nausea with vomiting, unspecified Condition: Good Disposition: HOME, SELF-CARE Additional Instructions: Your symptoms appear to be most consistent with stomach or upper intestinal irritation. Please return to emergency department immediately if you have worsening of your pain, shortness of breath, vomiting, become unable to exert yourself due to pain or difficulty breathing, you pass out, or have any pain that radiates into your arms, jaw, or back. Please also return if you have any additional symptoms that are concerning to you. \ Referrals: [facility] [Primary Care Provider] - Follow up as needed
[2018-08-28 04:37] VITALS: BP 132/68
== END 2018-08-28 04:37 | disposition home or self-care (01) ==
LOC: ER 01:26
DX: R10.13 Epigastric pain (principal); R11.2 Nausea with vomiting, unspecified; R10.9 Unspecified abdominal pain; E11.9 Type 2 diabetes mellitus without complications; Z79.4 Long term (current) use of insulin
CPT/HCPCS: 99284; 96374; 36415; 83690; 85025; 80053; 76705; J3490; J2405; J7030

== ENCOUNTER → 2018-10-21 | Outpatient (CLI) | payer OTHER ==
[2018-10-21 12:33] LABS: IRON 78.4 ug/dL (49-181); TOTAL PROTEIN 7.6 g/dL (6.3-8.2)
[2018-10-21 13:54] LABS: FERRITIN 73.6 ng/mL (17.9-464.0)
== END ==
LOC: CCC 10:50
DX: D50.9 Iron deficiency anemia, unspecified (principal)
CPT/HCPCS: 36415; 82728; 83540; 84155; 84165

== ENCOUNTER 2019-04-25 16:43 | Emergency (ER) | payer OTHER ==
[2019-04-25] MEDS ORDERED: ONDANSETRON HCL INJ/PF 4 MG/2 ML SDV IV ONE (20:39)
[2019-04-25] MEDS ORDERED: NORMAL SALINE 1000 ML 1,000 ML IV ONE (20:39)
[2019-04-25] MEDS ORDERED: MORPHINE SULFATE 10 MG/ML INJ IV ONE (20:43)
--- NOTE | 2019-04-25 20:58 | ER Document Report ---
ED GI/ - General Chief Complaint: Abdominal Pain Stated Complaint: STOMACH PAIN Time Seen by Provider: 04/25/19 20:29 Primary Care Provider: [facility] [Provider Group] - Follow up in 1 week Notes: Patient is a 43-year-old male with a history of insulin-dependent diabetes who presents to the emergency department with a chief complaint of abdominal pain, nausea, and vomiting. Patient states that his symptoms started 2 days ago. Patient is currently on Levemir 15 units twice daily. TRAVEL OUTSIDE OF THE [place] IN LAST 30 DAYS: No - Related Data Allergies/Adverse Reactions: Penicillins Allergy (Unknown, Verified 08/28/18 01:54) Home Medications: Insulin. Eyedrops Past Medical History - Social History Smoking Status: Former Smoker Frequency of alcohol use: None Drug Abuse: None Family History: Reviewed & Not Pertinent Patient has suicidal ideation: No Patient has homicidal ideation: No - Past Medical History Cardiac Medical History: Reports: Hx Hypercholesterolemia Pulmonary Medical History: Denies: Hx Tuberculosis Neurological Medical History: Denies: Hx Seizures Endocrine Medical History: Reports: Hx Diabetes Mellitus Type 1, Hx Diabetes Mellitus Type 2 Renal/ Medical History: Denies: Hx Kidney Stones, Hx Peritoneal Dialysis GI Medical History: Reports: Hx Gastroesophageal Reflux Disease, Hx Hiatal Hernia Past Surgical History: Denies: Hx Pacemaker - Immunizations Hx Diphtheria, Pertussis, Tetanus Vaccination: Yes - unknown Review of Systems - Review of Systems Notes: REVIEW OF SYSTEMS: CONSTITUTIONAL : Denies recent illness. Denies recent unintentional weight loss. Denies fever, chills, or sweats. EENT: Denies eye, ear, throat, or mouth pain, discharge, or symptoms. Denies nasal or sinus congestion. CARDIOVASCULAR: Denies chest pain. RESPIRATORY: Denies shortness of breath, cough, congestion, difficulty breathing, or wheezing. GASTROINTESTINAL: See HPI. GENITOURINARY: Denies difficulty urinating, burning, blood in urine, urgency or frequency. MUSCULOSKELETAL: Denies neck and back pain. Denies joint pain or swelling. SKIN: Denies rash, itchiness, or lesions HEMATOLOGIC : Denies easy bruising or bleeding. LYMPHATIC: Denies swollen, painful, enlarged glands. NEUROLOGICAL: Denies no numbness or tingling denies weakness. Denies headache. Denies altered mental status. Denies alteration in speech. PSYCHIATRIC: Denies stress, anxiety, alteration in sleep patterns, or depression. All other systems reviewed and negative. Physical Exam - Vital signs Vitals: Temp Pulse Resp BP Pulse Ox 98.4 F 93 16 133/85 H 96 04/25/19 17:06 04/25/19 17:06 04/25/19 17:06 04/25/19 17:06 04/25/19 17:06 - Notes Notes: PHYSICAL EXAMINATION: GENERAL: Appears well, healthy, well-nourished, no acute distress. HEAD: Normocephalic, atraumatic. EYES: PERRL, conjunctiva normal, all extraocular movements intact, sclera nonicteric ENT: Moist mucous membranes. NECK: Supple, no noticeable swelling, redness, rash. Normal range of motion. LUNGS: Equal breath sounds bilaterally and clear to auscultation. No wheezes rales or rhonchi. CARDIOVASCULAR: S1-S2, regular rate, regular rhythm. Radial pulses 2+, normal. ABDOMEN: Normoactive bowel sounds. Soft, tender right upper abdominal quadrant, no guarding, no rebound tenderness, and no masses palpated. EXTREMITIES: Normal strength and range of motion, no pitting or edema. No cy anosis. NEUROLOGICAL: Moves all extremities upon command. Strength 5/5 in all extremities. PSYCH: Normal mood, normal affect. SKIN: Warm, dry. No rash, lesions, ulcerations noted. Normal skin turgor. Course - Re-evaluation Re-evalutation: 04/26/19 09:30 Patient's hematology is unremarkable. No leukocytosis or anemia noted. Chemistries are also unremarkable. Protein is mildly elevated. Liver function tests are normal. Blood sugar was 152, I ended up cancelling the venous blood gas. RUQ ultrasound. No evidence of cholecystitis or Colelithiasis. Lipase was 143, no pacreatitis noted. Patient will follow-up with his primary care provider regards to this visit. He is in agreement with this plan. Discussed findings with the patient. Educated the patient on a low-fat diet. He states that he will work on eating better. Do not suspect any life-threatening etiology at this time. Follow-up precautions were given. Verbal discharge instructions were given to the patient. They verbalized understanding. They are stable for discharge. - Vital Signs Vital signs: Temp Pulse Resp BP Pulse Ox 98.0 F 84 16 112/59 L 97 04/26/19 01:42 04/26/19 01:42 04/26/19 01:42 04/26/19 01:42 04/26/19 01:42 - Laboratory Result Diagrams: 04/25/19 21:56 04/25/19 21:56 Laboratory results interpreted by me: 04/25/19 04/25/19 04/25/19 20:52 21:56 21:56 RBC 5.81 H MCV 75 L MCH 25.5 L Glucose 173 H POC Glucose 152 H Total Protein 8.3 H Urine Ketones Urine Urobilinogen 04/26/19 00:25 RBC MCV MCH Glucose POC Glucose Total Protein Urine Ketones 20 H Urine Urobilinogen 4.0 H Discharge - Discharge Clinical Impression: Fatty liver disease, nonalcoholic Abdominal pain Qualifiers: Abdominal location: right upper quadrant Qualified Code(s): R10.11 - Right upper quadrant pain Condition: Stable Disposition: HOME, SELF-CARE Instructions: Low-Fat Diet ([facility]) Additional Instructions: You were seen today for abdominal pain. You have a fatty liver, meaning you have built up a lot of fatty liver, which is most likely causing her pain. Please make sure you stay away from fatty foods, as this may make your pain worse. Your labs are reassuring. Please follow-up with your primary care provider in regards to this visit. Forms: Return to Work Referrals: [facility] [Provider Group] - Follow up in 1 week
--- NOTE | 2019-04-25 22:16 | RADIOLOGY REPORT (SQ) ---
EXAM DESCRIPTION: US ABDOMEN LIMITED COMPLETED DATE/TME: 04/25/2019 20:39 CLINICAL HISTORY: 43 years, Male, RUQ abd pain COMPARISON: 08/28/2018 ultrasound TECHNIQUE: Limited right upper quadrant ultrasound LIMITATIONS: None. FINDINGS: Heterogeneous echotexture to the liver consistent with fatty infiltrative change. No gallstones or gallbladder wall thickening. CBD measures 2 mm. Pancreas not well seen due to bowel gas. Visualized abdominal aorta, inferior vena cava, right kidney are unremarkable. No ascites IMPRESSION: Fatty infiltrative change to the liver copyright 2010 [employer]- All Rights Reserved
[2019-04-25 22:33] LABS: ALBUMIN 4.5 g/dL (3.5-5.0); ALKALINE PHOSPHATASE 114 U/L (38-126); ANION GAP 12 (5-19); ASPARTATE AMINO TRANSFERASE 23 U/L (17-59); BILIRUBIN,DIRECT 0.2 mg/dL (0.0-0.4); BILIRUBIN,TOTAL 0.5 mg/dL (0.2-1.3); BLOOD UREA NITROGEN 16 mg/dL (7-20); CALCIUM 9.7 mg/dL (8.4-10.2); CARBON DIOXIDE 27 mmol/L (22-30); CHLORIDE 101 mmol/L (98-107); GLUCOSE 173 mg/dL (75-110); POTASSIUM 4.2 mmol/L (3.6-5.0); TOTAL PROTEIN 8.3 g/dL (6.3-8.2)
[2019-04-25 22:47] LABS: HEMATOCRIT 43.4 % (37.9-51.0); HEMOGLOBIN 14.8 g/dL (13.5-17.0); MEAN CORPUSCULAR HEMOGLOBIN 25.5 pg (27.0-33.4); MEAN CORPUSCULAR HGB CONC 34.2 g/dL (32.0-36.0); MEAN CORPUSCULAR VOLUME 75 fl (80-97); PLATELET COUNT 243 10^3/uL (150-450); RED BLOOD COUNT 5.81 10^6/uL (4.35-5.55); RED CELL DISTRIBUTION WIDTH 13.8 % (11.5-14.0); WHITE BLOOD COUNT 6.7 10^3/uL (4.0-10.5)
[2019-04-26 00:45] LABS: APPEARANCE,URINE CLEAR; BILIRUBIN,URINE NEGATIVE (NEGATIVE); COLOR,URINE YELLOW; GLUCOSE, URINE NEGATIVE (NEGATIVE); KETONES,URINE 20 mg/dL (NEGATIVE); LEUKOCYTE ESTERASE,URINE NEGATIVE (NEGATIVE); NITRITE,URINE NEGATIVE (NEGATIVE); PROTEIN,URINE NEGATIVE (NEGATIVE); URINE SPECIFIC GRAVITY 1.023
[2019-04-26 02:43] VITALS: BP 112/59
== END 2019-04-26 01:42 | disposition home or self-care (01) ==
LOC: ER 16:43
DX: K76.0 Fatty (change of) liver, not elsewhere classified (principal); R10.11 Right upper quadrant pain; R11.2 Nausea with vomiting, unspecified; E78.00 Pure hypercholesterolemia, unspecified; E11.9 Type 2 diabetes mellitus without complications; Z79.4 Long term (current) use of insulin; Z88.0 Allergy status to penicillin
CPT/HCPCS: 99284; 96361; 96374; 96375; 36415; 82962; 83690; 85027; 80053; 81001; 76705; J2270; J2405; J7030

== ENCOUNTER → 2019-05-25 | Outpatient (CLI) | payer OTHER ==
--- NOTE | 2019-05-25 16:30 | RADIOLOGY REPORT (SQ) ---
EXAM DESCRIPTION: NM GASTRIC EMPTYING STUDY COMPLETED DATE/TIME: 05/25/2019 1:04 pm REASON FOR STUDY: INTERMITTENT N/V (R11.2) R11.2 NAUSEA WITH VOMITING, UNSPECIFIED R10.11 RIGHT UP PER QUADRANT PAIN COMPARISON: None. RADIONUCLIDE AND DOSE: 2 millicuries Tc-99m Sulfur Colloid. A wide variety of solid foods have been used. The route of agent administration: Oral. TECHNIQUE: 1 minute serial static imaging performed at time of meal, 1 hour, 2 hours, 3 hours, and 4 hours as needed. Once stomach reaches 90% emptying, the test is complete. Image intensity values pl otted with respect to time with linear regression algorithm. LIMITATIONS: None. FINDINGS: Patient was observed for 4 hours. Immediate post meal serves as baseline. Gastric emptying at 30 minutes was 17.2%. Gastric emptying at 60 minutes was 31.5% Gastric emptying at 90 minutes was 43.3%. Gastric emptying at 120 minutes was 53.1%. Gastric emptying at 240 minutes was 78%. Normal values: 60 minutes: 30-90% retained. If less than 30%, abnormally rapid emptying. If greater than 90%, delaye d gastric emptying. 120 minutes: <60% retained. If greater than 60%, delayed gastric emptying. 240 minutes: <10% retained. If greater than 10%, delayed gastric emptying. IMPRESSION: Delayed gastric emptying. TECHNICAL DOCUMENTATION: JOB ID: [id number] [employer]- All Rights Reserved rev Reading location - IP/workstation name: [email or web address]
== END ==
LOC: RAD 08:06
PROVIDERS: ATTEND Internal Medicine
DX: K30 Functional dyspepsia (principal); R11.2 Nausea with vomiting, unspecified
CPT/HCPCS: 78264; A9541

== ENCOUNTER → 2019-11-27 | Outpatient (CLI) | payer OTHER ==
[2019-11-27 13:51] LABS: ABSOLUTE EOSINOPHILS # (AUTO) 0.2 10^3/uL (0.0-0.6); ABSOLUTE LYMPHOCYTES (AUTO) 1.2 10^3/uL (0.5-4.7); ABSOLUTE MONOCYTES (AUTO) 0.3 10^3/uL (0.1-1.4); ABSOLUTE NEUT (AUTO) 2.1 10^3/uL (1.7-8.2); BASOPHILS % (AUTO) 1.3 % (0-2); EOSINOPHILS % (AUTO) 3.9 % (0-6); HEMATOCRIT 42.4 % (37.9-51.0); HEMOGLOBIN 14.3 g/dL (13.5-17.0); LYMPHOCYTES % (AUTO) 32.1 % (13-45); MEAN CORPUSCULAR HEMOGLOBIN 25.1 pg (27.0-33.4); MEAN CORPUSCULAR HGB CONC 33.7 g/dL (32.0-36.0); MEAN CORPUSCULAR VOLUME 74 fl (80-97); MONOCYTES % (AUTO) 7.7 % (3-13); PLATELET COUNT 232 10^3/uL (150-450); RED BLOOD COUNT 5.71 10^6/uL (4.35-5.55); RED CELL DISTRIBUTION WIDTH 14.2 % (11.5-14.0); TOTAL CELLS COUNTED % (AUTO) 100 %; WHITE BLOOD COUNT 3.8 10^3/uL (4.0-10.5)
[2019-11-27 14:10] LABS: ALBUMIN 4.3 g/dL (3.5-5.0); ALKALINE PHOSPHATASE 82 U/L (38-126); ANION GAP 5 (5-19); ASPARTATE AMINO TRANSFERASE 27 U/L (17-59); BILIRUBIN,TOTAL 0.5 mg/dL (0.2-1.3); BLOOD UREA NITROGEN 17 mg/dL (7-20); CALCIUM 9.3 mg/dL (8.4-10.2); CARBON DIOXIDE 28 mmol/L (22-30); CHLORIDE 108 mmol/L (98-107); CHOLESTEROL 166.96 mg/dL (0-200); GLUCOSE 119 mg/dL (75-110); POTASSIUM 4.5 mmol/L (3.6-5.0); TOTAL PROTEIN 7.6 g/dL (6.3-8.2); TRIGLYCERIDES 52 mg/dL (<150)
[2019-11-27 14:21] LABS: DIRECT LDL 100 mg/dL (<100)
== END ==
LOC: CCC 13:22
DX: E11.8 Type 2 diabetes mellitus with unspecified complications (principal)
CPT/HCPCS: 36415; 80053; 80061; 83036; 84443; 85025

== ENCOUNTER → 2020-03-20 | Outpatient (CLI) | payer OTHER ==
[2020-03-20 09:54] LABS: ANION GAP 12 (5-19); BLOOD UREA NITROGEN 18 mg/dL (7-20); CALCIUM 9.4 mg/dL (8.4-10.2); CARBON DIOXIDE 21 mmol/L (22-30); CHLORIDE 109 mmol/L (98-107); GLUCOSE 86 mg/dL (75-110); POTASSIUM 4.7 mmol/L (3.6-5.0)
== END ==
LOC: CCC 07:57
PROVIDERS: ATTEND Internal Medicine
DX: E11.9 Type 2 diabetes mellitus without complications (principal)
CPT/HCPCS: 36415; 80048; 83036

== ENCOUNTER → 2020-06-13 | Outpatient (CLI) | payer OTHER ==
[2020-06-13 09:53] LABS: ABSOLUTE EOSINOPHILS # (AUTO) 0.2 10^3/uL (0.0-0.6); ABSOLUTE LYMPHOCYTES (AUTO) 1.5 10^3/uL (0.5-4.7); ABSOLUTE MONOCYTES (AUTO) 0.3 10^3/uL (0.1-1.4); ABSOLUTE NEUT (AUTO) 2.4 10^3/uL (1.7-8.2); BASOPHILS % (AUTO) 1.1 % (0-2); EOSINOPHILS % (AUTO) 3.8 % (0-6); HEMOGLOBIN 12.8 g/dL (13.5-17.0); LYMPHOCYTES % (AUTO) 33.8 % (13-45); MEAN CORPUSCULAR HEMOGLOBIN 24.5 pg (27.0-33.4); MEAN CORPUSCULAR HGB CONC 32.8 g/dL (32.0-36.0); MEAN CORPUSCULAR VOLUME 75 fl (80-97); MONOCYTES % (AUTO) 6.8 % (3-13); PLATELET COUNT 209 10^3/uL (150-450); RED BLOOD COUNT 5.21 10^6/uL (4.35-5.55); RED CELL DISTRIBUTION WIDTH 13.9 % (11.5-14.0); SEGMENTED NEUTROPHILS % (AUTO) 54.5 % (42-78); TOTAL CELLS COUNTED % (AUTO) 100 %; WHITE BLOOD COUNT 4.4 10^3/uL (4.0-10.5)
[2020-06-13 10:21] LABS: ALKALINE PHOSPHATASE 84 U/L (38-126); ANION GAP 7 (5-19); ASPARTATE AMINO TRANSFERASE 42 U/L (17-59); BILIRUBIN,DIRECT 0.1 mg/dL (0.0-0.4); BILIRUBIN,TOTAL 0.3 mg/dL (0.2-1.3); BLOOD UREA NITROGEN 20 mg/dL (7-20); CARBON DIOXIDE 26 mmol/L (22-30); CHLORIDE 107 mmol/L (98-107); CHOLESTEROL 139.02 mg/dL (0-200); GLUCOSE 147 mg/dL (75-110); POTASSIUM 4.3 mmol/L (3.6-5.0); TOTAL PROTEIN 7.2 g/dL (6.3-8.2); TRIGLYCERIDES 34 mg/dL (<150)
[2020-06-13 10:32] LABS: DIRECT LDL 80 mg/dL (<100)
[2020-06-14 13:36] LABS: CREATININE URINE 202.1 mg/dL (Not Estab.); MICROALBUMIN URINE 6.3 ug/mL (Not Estab.)
== END ==
LOC: OD 08:34
PROVIDERS: ATTEND Internal Medicine
DX: Z00.00 Encounter for general adult medical examination without abnormal findings (principal)
CPT/HCPCS: 36415; 80053; 80061; 82043; 82570; 83036; 84443; 85025